=== PATIENT | female | born 1995 | race Caucasian/White ===

== ENCOUNTER 2020-01-17 23:48 | Emergency (ER) | payer MEDICAID, SELFPAY ==
--- NOTE | 2020-01-18 | XR_ITS ---
EXAMINATION: XR CHEST CLINICAL INFORMATION: Cough and fever COMPARISON: 11/29/2016 TECHNIQUE: Frontal view of the chest was obtained. FINDINGS: The lungs are well expanded. There is no focal consolidation, edema, or effusion. No pneumothorax. The cardiomediastinal silhouette is within normal limits. No acute osseous abnormality. XR/XR chest 1V IMPRESSION: Clear lungs.
[2020-01-18 00:12] VITALS: BP 105/66; PULSE 125; RESP 16; TEMP 38.3; O2SAT 96; BMI 33.0
--- NOTE | 2020-01-18 00:15 | ED.URI ---
HPI - URI/Sore Throat General Chief Complaint: Upper Respiratory Symptoms <Gael Rubio NP - Last Filed: 01/18/20 02:04> Stated Complaint: Body aches <Gael Rubio NP - Last Filed: 01/18/20 02:04> Time Seen by Provider: 01/18/20 00:02 <Gael Rubio NP - Last Filed: 01/18/20 02:04> Source: patient <Gael Rubio NP - Last Filed: 01/18/20 02:04> Mode of arrival: ambulatory <Gael Rubio NP - Last Filed: 01/18/20 02:04> Limitations: no limitations <Gael Rubio NP - Last Filed: 01/18/20 02:04> History of Present Illness HPI Narrative: 24-year-old female who currently is 33 weeks gestation with single IUP confirmed via sono being followed by [facility] Stephanie Marcial - otherwise she is healthy not currently taking any medications reports to me that she has had some runny nose congestion today and chills. 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 She otherwise denies any chest pain or shortness of breath no abdominal pain, GI symptoms. No -related complaints. States she is up-to-date on vaccinations. No recent travel, antibiotic use. <Gael Rubio NP - Last Filed: 01/18/20 02:04> MD elicited complaint: rhinorrhea and nasal congestion <Gael Rubio NP - Last Filed: 01/18/20 02:04> Onset (ago): day(s) (1) <Gael Rubio NP - Last Filed: 01/18/20 02:04> Severity: mild <Gael Rubio NP - Last Filed: 01/18/20 02:04> Exacerbating factors: nothing <Gael Rubio NP - Last Filed: 01/18/20 02:04> Relieving factors: nothing <Gael Rubio NP - Last Filed: 01/18/20 02:04> Context: sick contacts <Gael Rubio NP - Last Filed: 01/18/20 02:04> Associated symptoms: rhinorrhea <Gael Rubio NP - Last Filed: 01/18/20 02:04> Treatments prior to arrival: none <Gael Rubio NP - Last Filed: 01/18/20 02:04> Related Data Allergies/Adverse Reactions: Allergies Allergy/AdvReac Type Severity Reaction Status Date / Time No Known Allergies Allergy Verified 01/18/20 00:12 [No Known Allergies*] <Gael Rubio NP - Last Filed: 01/18/20 02:04> Review of Systems Review of Systems: Constitutional: No Weight loss, No Fever, + Chills, No Night Sweats, No Fatigue, No Malaise ENT/Mouth: No Hearing loss, No Ear Pain, + Nasal Congestion, No Sinus Pain, No Hoarseness, No sore throat, + Rhinorrhea, No Swallowing Difficulty Eyes: No Eye Pain, No Swelling, No Redness, No Foreign Body, No Discharge, No Vision Changes Cardiovascular: No Chest Pain, No SOB, No Dyspnea on Exertion, No Orthopnea, No Edema, No Palpitations Respiratory: No Cough, No Sputum, No Wheezing, No Smoke Exposure, No Dyspnea Gastrointestinal: No Nausea, No Vomiting, No Diarrhea, No Constipation, No abdominal Pain, No Hematochezia, No Melena Genitourinary: no irregular bleeding, No Dysuria, No Urinary Frequency, No Hematuria, No Urinary Incontinence, No Urgency, No Flank Pain, No Urinary Flow Changes, No Hesitancy Musculoskeletal: No joint pain, No Myalgias, No Joint Swelling Skin: No Skin Lesions, No rash Neuro: No Weakness, No Numbness, No Paresthesias, No Loss of Consciousness, No Dizziness, No Headache Psych: No Social Issues Heme/Lymph: No Bruising, No Bleeding,No Lymphadenopathy Endocrine: No Polyuria, No Polydipsia, No Temperature Intolerance <Gael Rubio NP - Last Filed: 01/18/20 02:04> Yes all other systems are reviewed and are negative <Gael Rubio NP - Last Filed: 01/18/20 02:04> [facility] Past Medical History Attestation statement: The following information was validated with the patient. <Gael Rubio NP - Last Filed: 01/18/20 02:04> Medical History: Medical History Patient denies significant medical history <Gael Rubio NP - Last Filed: 01/18/20 02:04> Social History Social History: Social History Alcohol intake: never Smoked in Last 30 Days: No Use of substances other than those prescribed or required for medical reasons: No Advance Directives: No <Gael Rubio NP - Last Filed: 01/18/20 02:04> Physical Exam Vital Signs: Vital Signs: Vital Signs Temp Pulse Resp BP Pulse Ox 01/18/20 02:00 99.3 F 99 18 109/67 98 01/18/20 00:36 98 01/18/20 00:12 100.9 F H 125 H 16 105/66 96 Body Mass Index 33.0 Reviewed <Gael Rubio NP - Last Filed: 01/18/20 02:04> Vital Signs: Vital Signs Temp Pulse Resp BP Pulse Ox 01/18/20 02:00 99.3 F 99 18 109/67 98 01/18/20 00:36 98 01/18/20 00:12 100.9 F H 125 H 16 105/66 96 Body Mass Index 33.0 <Alexa Chawla MD - Last Filed: 01/18/20 02:15> Const: General: cooperative and healthy appearing; No acute distress or intoxicated appearing <Gael Rubio NP - Last Filed: 01/18/20 02:04> Nutritional Appearance: average body habitus <Gael Rubio NP - Last Filed: 01/18/20 02:04> Orientation/consciousness: patient oriented x3 <Gael Rubio NP - Last Filed: 01/18/20 02:04> HENMT: Head: Yes normal to inspection <Gael Rubio NP - Last Filed: 01/18/20 02:04> Ears: hearing grossly normal bilaterally <Gael Rubio NP - Last Filed: 01/18/20 02:04> Eyes: General: appearance normal, both eyes and all related structures <Gael Rubio NP - Last Filed: 01/18/20 02:04> Visual Burnett: normal visual burnett by confrontation <Gael Rubio NP - Last Filed: 01/18/20 02:04> Neck: Neck: Yes normal visual inspection, No positive Brudzinski's sign, No positive Kernig's sign and No tender <[facility] Last Filed: 01/18/20 02:04> Thyroid: Thyroid normal <[facility] Last Filed: 01/18/20 02:04> Chest: Chest palpation & inspection: normal inspection of the chest <[facility] Last Filed: 01/18/20 02:04> Resp: Effort & Inspection: normal respiratory effort <[facility] Last Filed: 01/18/20 02:04> Cardio: Jugular venous distension: no JVD <[facility] Last Filed: 01/18/20 02:04> GI: Inspection: Yes normal to inspection <[facility] Last Filed: 01/18/20 02:04> Percussion: Yes normal to percussion <[facility] Last Filed: 01/18/20 02:04> Auscultation: normal bowel sounds <[facility] Last Filed: 01/18/20 02:04> : General: Yes no CVA tenderness <[facility] Last Filed: 01/18/20 02:04> Back/Spine/Pelvis: Back: no CVA tenderness <[facility] Last Filed: 01/18/20 02:04> Skin: General skin exam: no rashes or lesions noted <[facility] Last Filed: 01/18/20 02:04> Neuro: General: patient oriented x3 <[facility] Last Filed: 01/18/20 02:04> Extrem: General: Yes normal to inspection <[facility] Last Filed: 01/18/20 02:04> MDM - URI/Sore Throat MDM Narrative Medical decision making narrative: Labs overall reassuring. Has been resting comfortable. Did receive IV fluids here. Chest x-ray negative. Influenza/ COVID test negative. Will discharge home with clear precaution return follow-up instructions. Stable for discharge [facility] Last Filed: 01/18/20 02:04> Differential Diagnosis Differential diagnosis: Likely upper respiratory infection, sinusitis, viral infection and influenza; Unlikely croup, otitis media, bronchitis and pharyngitis <Gael Rubio NP - Last Filed: 01/18/20 02:04> Medical Records Attestation: I reviewed the patient's medical records. <Gael Rubio NP - Last Filed: 01/18/20 02:04> Lab Data Result diagrams: : 01/18/20 00:37 01/18/20 00:37 <Gaelkiran Rubio NP - Last Filed: 01/18/20 02:04> Labs: Lab Results 01/18/20 01/18/20 01/18/20 Range/Units 00:37 00:37 00:37 WBC (4.8-10.8) X10*3/uL RBC (4.20-5.50) X10*6/uL Hgb (12.0-16.0) g/dl Hct (37-47) % MCV (80-98) fL MCH (27.0-33.0) pg MCHC (31.0-35.0) g/dl RDW (11.0-16.0) % Plt Count (160-400) X10*3/uL MPV (9.4-12.3) fL Immature Gran % (Auto) (0.0-0.4) % Neut % (Auto) (45-73) % Lymph % (Auto) (20-40) % [place] % (Auto) (2-11) % Eos % (Auto) (0-4) % Baso % (Auto) (0-2) % Lymph # (Auto) (1.2-4.9) X10*3/uL [place] # (Auto) (0.1-1.2) X10*3/uL Eos # (Auto) (0.0-0.4) X10*3/uL Baso # (Auto) (0.0-0.2) X10*3/uL Abs Immat Gran (auto) (0.00-0.03) X10*3/uL Absolute Neuts (auto) (2.0-8.3) X10*3/uL Absolute Nucleated RBC (0.0-0.012) X10*3/uL Nucleated RBC % (auto) (0.0-0.2) /100WBC Sodium (135-145) mmol/L Potassium (3.3-5.1) mmol/l Chloride (96-108) mmol/L Carbon Dioxide (22-29) mmol/L Anion Gap (12-20) BUN (9-16) mg/dL Creatinine (0.5-1.4) mg/dL Estim Creat Clear Calc Estimated GFR Random Glucose (60-115) mg/dL Calcium (8.4-10.2) mg/dL Total Bilirubin (0.0-1.0) mg/dL AST (5-31) U/L ALT (0-31) U/L Alkaline Phosphatase (39-117) U/L Total Protein (6.5-8.0) g/dL Albumin (3.5-5.0) g/dL Urine Color YELLOW Urine Appearance HAZY Urine pH 6.5 (5.0-8.0) Ur Specific [place] 1.025 (1.005-1.025) Urine Protein NEG (NEG-TRACE) MG/DL Urine Glucose (UA) NEG (NEG) MG/DL Urine Ketones 5 (NEG) MG/DL Urine Blood NEG (NEG) Urine Nitrite NEG (NEG) Ur Leukocyte Esterase 2+ H (NEG) Urine RBC 0 (0) /HPF Urine WBC 1-4 (0-4) /HPF Ur Squamous Epith Cells 4+ /LPF Urine Bacteria 3+ /LPF Urine Mucus 1+ /LPF Coronavirus (PCR) NEGATIVE (Negative) Influenza Type A (PCR) NEGATIVE (Negative) Influenza Type B (PCR) NEGATIVE (Negative) Influenza A & B Note See Note RSV RNA Qual (PCR) NEGATIVE (Negative) 01/18/20 01/18/20 Range/Units 00:37 00:37 WBC 11.7 H (4.8-10.8) X10*3/uL RBC 4.00 L (4.20-5.50) X10*6/uL Hgb 11.1 L (12.0-16.0) g/dl Hct 33.9 L (37-47) % MCV 84.8 (80-98) fL MCH 27.8 (27.0-33.0) pg MCHC 32.7 (31.0-35.0) g/dl RDW 12.4 (11.0-16.0) % Plt Count 268 (160-400) X10*3/uL MPV 11.0 (9.4-12.3) fL Immature Gran % (Auto) 0.7 H (0.0-0.4) % Neut % (Auto) 84.2 H (45-73) % Lymph % (Auto) 8.3 L (20-40) % [place] % (Auto) 6.2 (2-11) % Eos % (Auto) 0.3 (0-4) % Baso % (Auto) 0.3 (0-2) % Lymph # (Auto) 1.0 L (1.2-4.9) X10*3/uL [place] # (Auto) 0.7 (0.1-1.2) X10*3/uL Eos # (Auto) 0.0 (0.0-0.4) X10*3/uL Baso # (Auto) 0.0 (0.0-0.2) X10*3/uL Abs Immat Gran (auto) 0.08 H (0.00-0.03) X10*3/uL Absolute Neuts (auto) 9.9 H (2.0-8.3) X10*3/uL Absolute Nucleated RBC 0.000 (0.0-0.012) X10*3/uL Nucleated RBC % (auto) 0.0 (0.0-0.2) /100WBC Sodium 134 L (135-145) mmol/L Potassium 3.9 (3.3-5.1) mmol/l Chloride 106 (96-108) mmol/L Carbon Dioxide 19 L (22-29) mmol/L Anion Gap 13 (12-20) BUN 5 L (9-16) mg/dL Creatinine 0.49 L (0.5-1.4) mg/dL Estim Creat Clear Calc 171.8 Estimated GFR > 60 Random Glucose 86 (60-115) mg/dL Calcium 7.8 L (8.4-10.2) mg/dL Total Bilirubin 0.7 (0.0-1.0) mg/dL AST 21 (5-31) U/L ALT 17 (0-31) U/L Alkaline Phosphatase 137 H (39-117) U/L Total Protein 6.5 (6.5-8.0) g/dL Albumin 3.2 L (3.5-5.0) g/dL Urine Color Urine Appearance Urine pH (5.0-8.0) Ur Specific [place] (1.005-1.025) Urine Protein (NEG-TRACE) MG/DL Urine Glucose (UA) (NEG) MG/DL Urine Ketones (NEG) MG/DL Urine Blood (NEG) Urine Nitrite (NEG) Ur Leukocyte Esterase (NEG) Urine RBC (0) /HPF Urine WBC (0-4) /HPF Ur Squamous Epith Cells /LPF Urine Bacteria /LPF Urine Mucus /LPF Coronavirus (PCR) (Negative) Influenza Type A (PCR) (Negative) Influenza Type B (PCR) (Negative) Influenza A & B Note RSV RNA Qual (PCR) (Negative) <Gael Rubio NP - Last Filed: 01/18/20 02:04> Lab Results 01/18/20 01/18/20 01/18/20 Range/Units 00:37 00:37 00:37 WBC (4.8-10.8) X10*3/uL RBC (4.20-5.50) X10*6/uL Hgb (12.0-16.0) g/dl Hct (37-47) % MCV (80-98) fL MCH (27.0-33.0) pg MCHC (31.0-35.0) g/dl RDW (11.0-16.0) % Plt Count (160-400) X10*3/uL MPV (9.4-12.3) fL Immature Gran % (Auto) (0.0-0.4) % Neut % (Auto) (45-73) % Lymph % (Auto) (20-40) % [place] % (Auto) (2-11) % Eos % (Auto) (0-4) % Baso % (Auto) (0-2) % Lymph # (Auto) (1.2-4.9) X10*3/uL [place] # (Auto) (0.1-1.2) X10*3/uL Eos # (Auto) (0.0-0.4) X10*3/uL Baso # (Auto) (0.0-0.2) X10*3/uL Abs Immat Gran (auto) (0.00-0.03) X10*3/uL Absolute Neuts (auto) (2.0-8.3) X10*3/uL Absolute Nucleated RBC (0.0-0.012) X10*3/uL Nucleated RBC % (auto) (0.0-0.2) /100WBC Sodium (135-145) mmol/L Potassium (3.3-5.1) mmol/l Chloride (96-108) mmol/L Carbon Dioxide (22-29) mmol/L Anion Gap (12-20) BUN (9-16) mg/dL Creatinine (0.5-1.4) mg/dL Estim Creat Clear Calc Estimated GFR Random Glucose (60-115) mg/dL Calcium (8.4-10.2) mg/dL Total Bilirubin (0.0-1.0) mg/dL AST (5-31) U/L ALT (0-31) U/L Alkaline Phosphatase (39-117) U/L Total Protein (6.5-8.0) g/dL Albumin (3.5-5.0) g/dL Urine Color YELLOW Urine Appearance HAZY Urine pH 6.5 (5.0-8.0) Ur Specific [place] 1.025 (1.005-1.025) Urine Protein NEG (NEG-TRACE) MG/DL Urine Glucose (UA) NEG (NEG) MG/DL Urine Ketones 5 (NEG) MG/DL Urine Blood NEG (NEG) Urine Nitrite NEG (NEG) Ur Leukocyte Esterase 2+ H (NEG) Urine RBC 0 (0) /HPF Urine WBC 1-4 (0-4) /HPF Ur Squamous Epith Cells 4+ /LPF Urine Bacteria 3+ /LPF Urine Mucus 1+ /LPF Coronavirus (PCR) NEGATIVE (Negative) Influenza Type A (PCR) NEGATIVE (Negative) Influenza Type B (PCR) NEGATIVE (Negative) Influenza A & B Note See Note RSV RNA Qual (PCR) NEGATIVE (Negative) 01/18/20 01/18/20 Range/Units 00:37 00:37 WBC 11.7 H (4.8-10.8) X10*3/uL RBC 4.00 L (4.20-5.50) X10*6/uL Hgb 11.1 L (12.0-16.0) g/dl Hct 33.9 L (37-47) % MCV 84.8 (80-98) fL MCH 27.8 (27.0-33.0) pg MCHC 32.7 (31.0-35.0) g/dl RDW 12.4 (11.0-16.0) % Plt Count 268 (160-400) X10*3/uL MPV 11.0 (9.4-12.3) fL Immature Gran % (Auto) 0.7 H (0.0-0.4) % Neut % (Auto) 84.2 H (45-73) % Lymph % (Auto) 8.3 L (20-40) % [place] % (Auto) 6.2 (2-11) % Eos % (Auto) 0.3 (0-4) % Baso % (Auto) 0.3 (0-2) % Lymph # (Auto) 1.0 L (1.2-4.9) X10*3/uL [place] # (Auto) 0.7 (0.1-1.2) X10*3/uL Eos # (Auto) 0.0 (0.0-0.4) X10*3/uL Baso # (Auto) 0.0 (0.0-0.2) X10*3/uL Abs Immat Gran (auto) 0.08 H (0.00-0.03) X10*3/uL Absolute Neuts (auto) 9.9 H (2.0-8.3) X10*3/uL Absolute Nucleated RBC 0.000 (0.0-0.012) X10*3/uL Nucleated RBC % (auto) 0.0 (0.0-0.2) /100WBC Sodium 134 L (135-145) mmol/L Potassium 3.9 (3.3-5.1) mmol/l Chloride 106 (96-108) mmol/L Carbon Dioxide 19 L (22-29) mmol/L Anion Gap 13 (12-20) BUN 5 L (9-16) mg/dL Creatinine 0.49 L (0.5-1.4) mg/dL Estim Creat Clear Calc 171.8 Estimated GFR > 60 Random Glucose 86 (60-115) mg/dL Calcium 7.8 L (8.4-10.2) mg/dL Total Bilirubin 0.7 (0.0-1.0) mg/dL AST 21 (5-31) U/L ALT 17 (0-31) U/L Alkaline Phosphatase 137 H (39-117) U/L Total Protein 6.5 (6.5-8.0) g/dL Albumin 3.2 L (3.5-5.0) g/dL Urine Color Urine Appearance Urine pH (5.0-8.0) Ur Specific [place] (1.005-1.025) Urine Protein (NEG-TRACE) MG/DL Urine Glucose (UA) (NEG) MG/DL Urine Ketones (NEG) MG/DL Urine Blood (NEG) Urine Nitrite (NEG) Ur Leukocyte Esterase (NEG) Urine RBC (0) /HPF Urine WBC (0-4) /HPF Ur Squamous Epith Cells /LPF Urine Bacteria /LPF Urine Mucus /LPF Coronavirus (PCR) (Negative) Influenza Type A (PCR) (Negative) Influenza Type B (PCR) (Negative) Influenza A & B Note RSV RNA Qual (PCR) (Negative) <Alexa Chawla MD - Last Filed: 01/18/20 02:15> Discharge Plan Discharge Clinical Impression: Viral infection Upper respiratory infection Qualifiers: URI type: unspecified viral URI Qualified Code(s): J06.9 - Acute upper respiratory infection, unspecified <Gael Rubio NP - Last Filed: 01/18/20 02:04> Patient Disposition: Home, Self-Care <Gael Rubio NP - Last Filed: 01/18/20 02:04> Instructions: Upper Respiratory Infection (ED) <Gael Rubio NP - Last Filed: 01/18/20 02:04> Additional Instructions: rest Drink plenty of fluids Tylenol for pain / fever Self-isolation Social distancing Follow with her OBGYN team as discussed Return if any concerns or worsening symptoms Thank you <Gael Rubio NP - Last Filed: 01/18/20 02:04> Referrals: ED Physician,Generic [Physician] - 3 days ( [facility] as needed) <Gael Rubio NP - Last Filed: 01/18/20 02:04> Interventions: ED Discharge Assessment Last Done: 01/18/20 02:10 <Gael Rubio NP - Last Filed: 01/18/20 02:04> Discharge Date/Time: 01/18/20 02:10 <Gael Rubio NP - Last Filed: 01/18/20 02:04> Print Language: Italian <Gael Rubio NP - Last Filed: 01/18/20 02:04>
[2020-01-18 00:36] VITALS: O2SAT 98
[2020-01-18] MEDS: Acetaminophen 325 MG TABLET 975 MG PO (00:45)
[2020-01-18] MEDS: 0.9 % Sodium Chloride 1,000 ML 999 ML IVCONT (00:45)
[2020-01-18 00:48] LABS: Basophils Percent Auto 0.3 % (0-2); Eosinophils Percent Auto 0.3 % (0-4); Hematocrit 33.9 % (37-47); Hemoglobin 11.1 g/dl (12.0-16.0); Imm Gran Abs Auto 0.08 X10*3/uL (0.00-0.03); Imm Gran Pct Auto 0.7 % (0.0-0.4); Lymphocytes Percent Auto 8.3 % (20-40); Mean Corpuscular HGB Conc 32.7 g/dl (31.0-35.0); Mean Corpuscular Hemoglobin 27.8 pg (27.0-33.0); Mean Corpuscular Volume 84.8 fL (80-98); Monocytes Absolute Auto 0.7 X10*3/uL (0.1-1.2); Monocytes Percent Auto 6.2 % (2-11); Neutrophils Absolute Auto 9.9 X10*3/uL (2.0-8.3); Neutrophils Percent Auto 84.2 % (45-73); Platelet Count 268 X10*3/uL (160-400); Red Cell Distribution Width 12.4 % (11.0-16.0); White Blood Count 11.7 X10*3/uL (4.8-10.8)
[2020-01-18 00:49] LABS: MANUAL DIFF FLAG NO
[2020-01-18 00:51] LABS: Glucose Urine UA NEG (NEG); Leukocyte Esterase Urine 2+ (NEG); Nitrite Urine NEG (NEG); PH 6.5 (5.0-8.0); Specific Gravity - Urine 1.025 (1.005-1.025); Urine Blood NEG (NEG); Urine Ketones 5 MG/DL (NEG); Urine Protein NEG (NEG-TRACE)
[2020-01-18 00:52] LABS: Appearance Urine HAZY; Color Urine YELLOW
[2020-01-18 01:03] LABS: Bacteria Urine 3+ /LPF; Mucus Urine 1+ /LPF; RBC Urine 0 /HPF (0); Squamous Epithelial Cell Urine 4+ /LPF
[2020-01-18 01:11] LABS: Alanine Aminotransferase 17 U/L (0-31); Albumin Level 3.2 g/dL (3.5-5.0); Alkaline Phosphatase 137 U/L (39-117); Anion Gap 13 (12-20); Aspartate Amino Transferase 21 U/L (5-31); Bilirubin Total 0.7 mg/dL (0.0-1.0); Blood Urea Nitrogen 5 mg/dL (9-16); Calcium 7.8 mg/dL (8.4-10.2); Carbon Dioxide 19 mmol/L (22-29); Chloride 106 mmol/L (96-108); Creatinine Clr Calc Pharmacy 171.8; Estimated Glomerular Filt Rate > 60; Glucose Random 86 mg/dL (60-115); Potassium 3.9 mmol/l (3.3-5.1); Sodium 134 mmol/L (135-145); Total Protein 6.5 g/dL (6.5-8.0)
[2020-01-18 01:41] LABS: Influenza A PCR NEGATIVE (Negative); Influenza B PCR NEGATIVE (Negative)
[2020-01-18 01:47] LABS: Resp Syncy Virus RNA Qual PCR NEGATIVE (Negative)
[2020-01-18 02:00] VITALS: BP 109/67; PULSE 99; RESP 18; TEMP 37.4; O2SAT 98
[2020-01-18 02:00] LABS: SARS COV2 PCR INHOUSE NEGATIVE (Negative)
--- NOTE | 2020-01-18 02:09 | PC.NURSE ---
heart tones 186, provider aware.
== END 2020-01-18 02:10 | disposition home or self-care (01) ==
PROVIDERS: Nurse Practitioner Primary Care; Emergency Provider Student in an Organized Health Care Education/Training Program
DX: J06.9 Acute upper respiratory infection, unspecified (principal); B34.9 Viral infection, unspecified; M79.10 Myalgia, unspecified site; Z20.828 Contact with and (suspected) exposure to other viral communicable diseases
CPT/HCPCS: 36415; 71045; 80053; 81001; 85025; 87086; 87631; 96360; 99284; U0003

== ENCOUNTER 2021-03-31 19:37 | Emergency (ER) | payer MEDICAID, SELFPAY | END 2021-03-31 21:23 | disposition left against medical advice (07) | LOC: HO.ED 21:21 | PROVIDERS: Emergency Provider Emergency Medicine | DX: R51.9 Headache, unspecified (principal) ==

== ENCOUNTER 2022-06-02 10:57 | Outpatient (REF) | payer MEDICAID, SELFPAY ==
--- NOTE | ~2022-06-02 | US_ITS ---
EXAMINATION: US PELVIC AND TRANSVAGINAL CLINICAL INFORMATION: Excessive and frequent menstruation. COMPARISON: CT abdomen and pelvis 07/26/2011. TECHNIQUE: Ultrasound of the pelvis is performed using both transabdominal and transvaginal transducers along with Doppler. Transvaginal imaging is performed due to inadequate visualization transabdominally. FINDINGS: UTERUS: The uterus is anteverted and measures 8.6 x 3.9 x 3.9 cm. The double wall endometrial thickness is 0.5 mm. Trace fluid is seen at the fundus. The uterus is smooth in contour and has normal myometrial echogenicity. No visible fibroid. ADNEXA: Both ovaries are visualized. There is normal color flow to the adnexa. There is no ovarian torsion. There is no pelvic ascites or fluid collection. Right ovary measures 3.7 x 1.9 x 2.3 cm for a volume of 8.5 mL which includes a benign simple 2.7 x 0.9 x 1.5 cm cyst. Left ovary measures 5.7 x 4.2 x 5.6 cm for a volume of 70.2 mL which includes a benign 5.0 x 3.6 x 4.3 cm cyst. US/US pelvic and transvaginal IMPRESSION: Bilateral benign-appearing ovarian cysts. No followup is needed.
== END 2022-06-02 10:58 | disposition home or self-care (01) ==
LOC: HO.US 10:57
PROVIDERS: Visit Provider General Practice
DX: N92.0 Excessive and frequent menstruation with regular cycle (principal); N76.0 Acute vaginitis
CPT/HCPCS: 76830; 76856

== ENCOUNTER 2023-01-04 21:55 | Emergency (ER) | payer MEDICAID, SELFPAY ==
--- NOTE | ~2023-01-04 | US_ITS ---
EXAMINATION: US PELVIS CLINICAL INFORMATION: Lower abdominal pain, question ovarian cyst COMPARISON: 06/02/2022 TECHNIQUE: Ultrasound of the pelvis is performed using both transabdominal and transvaginal transducers along with Doppler. Transvaginal imaging is performed due to inadequate visualization transabdominally. FINDINGS: Uterus measures 8.5 x 3.9 x 4.2 cm and appears unremarkable. Endometrial stripe measures 0.2 cm in thickness. Right ovary measures 3.2 x 1.9 x 1.7 cm and appears unremarkable. The left ovary measures 5.7 x 3.9 x 4.1 cm. There is a complex left ovarian cyst measuring 4.8 x 2.8 x 3.0 cm with some lacelike internal echoes as well as thicker septations, overall suggestive of a hemorrhagic cyst. Doppler evaluation demonstrates normal-appearing bilateral flow. Small to moderate amount of free fluid is noted in the pelvis. US/US pelvic and transvaginal IMPRESSION: 1. Complex left ovarian cyst measuring up to 4.8 cm, suggestive of a hemorrhagic cyst. Follow-up ultrasound in 6-12 weeks is recommended to assess for resolution. 2. Small to moderate amount of free fluid in the pelvis, nonspecific and which may be physiologic.
[2023-01-04 22:06] VITALS: BP 97/57; PULSE 80; RESP 18; TEMP 36.8; O2SAT 99; BMI 33.2
[2023-01-04 22:23] LABS: MANUAL DIFF FLAG NO
[2023-01-04 22:24] LABS: Basophils Absolute Auto 0.1 X10*3/uL (0.0-0.2); Basophils Percent Auto 0.6 % (0-2); Eosinophils Absolute Auto 0.2 X10*3/uL (0.0-0.4); Eosinophils Percent Auto 1.4 % (0-4); Hematocrit 39.2 % (37.0-47.0); Imm Gran Abs Auto 0.05 X10*3/uL (0.00-0.03); Imm Gran Pct Auto 0.3 % (0.0-0.4); Lymphocytes Absolute Auto 3.9 X10*3/uL (1.2-4.9); Lymphocytes Percent Auto 25.3 % (20-40); Mean Corpuscular HGB Conc 33.2 g/dl (31.0-35.0); Mean Corpuscular Hemoglobin 27.8 pg (27.0-33.0); Mean Corpuscular Volume 83.8 fL (80.0-98.0); Mean Platelet Volume 9.8 fL (9.4-12.3); Monocytes Absolute Auto 0.8 X10*3/uL (0.1-1.2); Neutrophils Absolute Auto 10.5 x10*3/uL (2.0-8.3); Neutrophils Percent Auto 67.4 % (45-73); Platelet Count 320 X10*3/uL (160-400); Red Blood Count 4.68 X10*6/uL (4.20-5.50); Red Cell Distribution Width 12.6 % (11.0-16.0); White Blood Count 15.6 X10*3/uL (4.8-10.8)
[2023-01-04 22:25] LABS: Appearance Urine Clear; Color Urine Yellow; Glucose Urine UA Negative (Negative); Leukocyte Esterase Urine Negative (Negative); Nitrite Urine Negative (Negative); Specific Gravity - Urine >= 1.030 (1.005-1.025); Urine Blood Negative (Negative); Urine Ketones Negative (Negative); Urine Protein Negative (Neg-Trace)
[2023-01-04 22:27] LABS: UPreg QC Valid YES; Urine Pregnancy NEGATIVE (NEGATIVE)
[2023-01-04 22:39] LABS: Alanine Aminotransferase 26 U/L (0-31); Alkaline Phosphatase 72 U/L (39-117); Anion Gap 12 (12-20); Aspartate Amino Transferase 22 U/L (5-31); Bilirubin Direct 0.3 mg/dL (0.0-0.5); Bilirubin Total 0.7 mg/dL (0.0-1.0); Blood Urea Nitrogen 11 mg/dL (9-16); Calcium 9.4 mg/dL (8.4-10.2); Carbon Dioxide 24 mmol/L (22-29); Chloride 105 mmol/L (96-108); Creatinine Clr Calc Pharmacy 141.7; Estimated Glomerular Filt Rate > 60; Glucose Random 83 mg/dL (60-115); Lipase 22 U/L (8-78); Potassium 3.7 mmol/L (3.3-5.1); Sodium 137 mmol/L (135-145); Total Protein 7.8 g/dL (6.5-8.0)
--- NOTE | 2023-01-04 22:41 | ED.ABDPAIN ---
HPI - Abdominal Pain General Chief Complaint: Abdominal Pain Stated Complaint: Abdominal/back sharp pain Time Seen by Provider: 01/04/23 22:23 Source: patient Mode of arrival: ambulatory Limitations: no limitations History of Present Illness HPI narrative: Patient complaining of pain the pelvic area since noon, does have history of ovarian cyst in the past and tubal also status post appendectomy , cholecystectomy pain sharp in character radiating to the epigastric area no urinary complaints has nausea but no vomiting Related Data Previous Rx's Medication Instructions Recorded ibuprofen 600 mg tablet 600 mg PO Q6H PRN fever or pain 01/05/23 #30 tabs Allergies Allergy/AdvReac Type Severity Reaction Status Date / Time No Known Allergies Allergy Verified 01/18/20 00:12 [No Known Allergies*] Review of Systems Review of Systems Yes all other systems are reviewed and are negative [facility] Past Medical History Medical History Patient denies significant medical history Social History Social History Alcohol intake: never Advance Directives: No Advance Directives Information Provided: Yes Physical Exam ED Vital Signs: Vital Signs - 24 hr 01/04/23 22:06 Temperature 98.3 F Pulse Rate 80 Respiratory Rate 18 Blood Pressure 97/57 L Pulse Oximetry 99 Oxygen Delivery Method Room Air BMI result Body Mass Index 33.2 Appearance: Alert. Oriented X3. No acute distress. Eyes: No pallor/icterus ENT: Pharynx normal. Oral Mucosa moist Neck: Normal inspection. Neck supple. CVS: Normal heart rate and rhythm. Pulses normal. Respiratory: No respiratory distress. Equal air entry bilateral, no wheezing/rales/rhonchi Abdomen: Soft tenderness in epigastric area and suprapubic no guarding or rebound tenderness Bowel sounds are present, no mass palpable, no CVA tenderness Skin: Skin warm and dry. Normal skin color. Normal skin turgor. Extremities: No lower extremity edema. No calf tenderness Neuro: Oriented X 3. Medical Decision Making Medical Decision Making MDM Narrative: Patient likely with hemorrhagic ovarian cyst with history of same in the past ultrasound done which showed 4.8 cm left complex ovarian cyst with hemorrhage inside patient feeling better after pain medication discharge patient home on ibuprofen Differential Diagnosis Differential Diagnoses: The differential diagnosis associated with the presentation includes Ovarian cyst/UTI Lab Data MDM Lab Attestation statement: I reviewed the patient's lab results. 01/04/23 22:17 01/04/23 22:16 Labs: Lab Results 01/04/23 01/04/23 Range/Units 22:16 22:17 WBC 15.6 H (4.8-10.8) X10*3/uL RBC 4.68 (4.20-5.50) X10*6/uL Hgb 13.0 (12.0-16.0) g/dl Hct 39.2 (37.0-47.0) % MCV 83.8 (80.0-98.0) fL MCH 27.8 (27.0-33.0) pg MCHC 33.2 (31.0-35.0) g/dl RDW 12.6 (11.0-16.0) % Plt Count 320 (160-400) X10*3/uL MPV 9.8 (9.4-12.3) fL Immature Gran % (Auto) 0.3 (0.0-0.4) % Neut % (Auto) 67.4 (45-73) % Lymph % (Auto) 25.3 (20-40) % [place] % (Auto) 5.0 (2-11) % Eos % (Auto) 1.4 (0-4) % Baso % (Auto) 0.6 (0-2) % Lymph # (Auto) 3.9 (1.2-4.9) X10*3/uL [place] # (Auto) 0.8 (0.1-1.2) X10*3/uL Eos # (Auto) 0.2 (0.0-0.4) X10*3/uL Baso # (Auto) 0.1 (0.0-0.2) X10*3/uL Abs Immat Gran (auto) 0.05 H (0.00-0.03) X10*3/uL Absolute Neuts (auto) 10.5 H (2.0-8.3) x10*3/uL Absolute Nucleated RBC 0.000 (0.0-0.012) X10*3/uL Nucleated RBC % (auto) 0.0 (0.0-0.2) /100WBC Sodium 137 (135-145) mmol/L Potassium 3.7 (3.3-5.1) mmol/L Chloride 105 (96-108) mmol/L Carbon Dioxide 24 (22-29) mmol/L Anion Gap 12 (12-20) BUN 11 (9-16) mg/dL Creatinine 0.58 (0.5-1.4) mg/dL Estim Creat Clear Calc 141.7 Estimated GFR > 60 Random Glucose 83 (60-115) mg/dL Calcium 9.4 D (8.4-10.2) mg/dL Total Bilirubin 0.7 (0.0-1.0) mg/dL Direct Bilirubin 0.3 (0.0-0.5) mg/dL AST 22 (5-31) U/L ALT 26 (0-31) U/L Alkaline Phosphatase 72 (39-117) U/L Total Protein 7.8 (6.5-8.0) g/dL Albumin 4.0 (3.5-5.0) g/dL Lipase 22 (8-78) U/L Urine Color Yellow Urine Appearance Clear Urine pH 6.0 (5.0-9.0) Ur Specific [place] >= 1.030 H (1.005-1.025) Urine Protein Negative (Neg-Trace) mg/dL Urine Glucose (UA) Negative (Negative) mg/dL Urine Ketones Negative (Negative) mg/dL Urine Blood Negative (Negative) Urine Nitrite Negative (Negative) Ur Leukocyte Esterase Negative (Negative) Urine Test NEGATIVE (NEGATIVE) Radiology Impression Discussion of test interpretation with radiology: I have reviewed the radiologist's reading. Radiologist Impression: US/US pelvic and transvaginal IMPRESSION: 1. Complex left ovarian cyst measuring up to 4.8 cm, suggestive of a hemorrhagic cyst. Follow-up ultrasound in 6-12 weeks is recommended to assess for resolution. 2. Small to moderate amount of free fluid in the pelvis, nonspecific and which may be physiologic. Medications Administered Discontinued Medications Generic Name Dose Route Start Last Admin Trade Name Freq PRN Reason Stop Dose Admin Sodium Chloride 1,000 mls @ 999 mls/hr 01/04/23 22:39 01/04/23 23:22 Ns IV 01/04/23 23:39 999 mls/hr .[id number] ONE Administration Ketorolac Tromethamine 30 mg 01/04/23 22:39 01/04/23 23:22 Ketorolac Tromethamine 30 Mg/Ml Vial IVPUSH 01/04/23 22:40 30 mg ONCE ONE Administration Ondansetron HCl 4 mg 01/04/23 22:40 01/04/23 23:22 Ondansetron Hcl 4 Mg/2 Ml Vial IVPUSH 01/04/23 22:41 4 mg ONCE ONE Administration Discharge Plan Discharge Clinical Impression: Hemorrhagic cyst of left ovary Patient Disposition: Home, Self-Care Instructions: Ovarian Cyst (ED) Additional Instructions: You have a large cyst on the left side which should disappear in next 2 months 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
--- NOTE | 2023-01-04 22:49 | PC.NURSE ---
pt to ultrasound
[2023-01-04] MEDS: 0.9 % Sodium Chloride 1,000 ML 999 ML IV (23:22)
[2023-01-04] MEDS: Ketorolac Tromethamine 30 MG/ML VIAL IVPUSH (23:22)
[2023-01-04] MEDS: ondansetron HCL 4 MG/2 ML VIAL IVPUSH (23:22)
--- NOTE | 2023-01-05 00:20 | PC.NURSE ---
pt assessed at d/c, reported 5/10 tolerable pain
== END 2023-01-05 00:21 | disposition home or self-care (01) ==
PROVIDERS: Emergency Provider Internal Medicine
DX: N83.202 Unspecified ovarian cyst, left side (principal); N83.8 Other noninflammatory disorders of ovary, fallopian tube and broad ligament; R10.2 Pelvic and perineal pain; R11.0 Nausea; M54.50 Low back pain, unspecified; Z79.899 Other long term (current) drug therapy
CPT/HCPCS: 36415; 76830; 76856; 80053; 81003; 81025; 82248; 83690; 85025; 96374; 96375; 99284; J1885; J2405

== ENCOUNTER 2023-03-10 12:58 | Outpatient (REF) | payer MEDICAID, SELFPAY ==
--- NOTE | ~2023-03-10 | XR_ITS ---
EXAMINATION: XR CHEST CLINICAL INFORMATION: Cough. COMPARISON: 01/18/2020. TECHNIQUE: 2 views of the chest were obtained. FINDINGS: No significant abnormality is noted involving the heart, lungs, mediastinum, bony thorax or soft tissues. XR/XR chest 2V IMPRESSION: Unremarkable examination.
== END 2023-03-10 12:59 | disposition home or self-care (01) ==
LOC: HO.HHCX 12:58
PROVIDERS: Visit Provider Internal Medicine
DX: J40 Bronchitis, not specified as acute or chronic (principal)
CPT/HCPCS: 71046

== ENCOUNTER 2023-03-12 11:12 | Emergency (ER) | payer MEDICAID, SELFPAY ==
[2023-03-12 11:16] VITALS: BP 110/68; PULSE 112; RESP 18; TEMP 36.9; O2SAT 97; BMI 33.4
--- NOTE | 2023-03-12 11:16 | ED_ITS ---
HPI - Abdominal Pain General Chief Complaint: General Medical Stated Complaint: Fever, abd & back pain Time Seen by Provider: 03/12/23 12:19 Source: patient Mode of arrival: ambulatory Limitations: no limitations History of Present Illness HPI narrative: 27 year old female with pmhx significant for presents to the ED today for evaluation of nausea, diarrhea, and epigastric abdominal pain x10 hours. Patient was diagnosed with bronchitis one week ago at urgent care. She was sent home with a zpak, tessalon perles, and prednisone with minimal relief of symptoms. She was then placed on Augmentin 2 days ago and is now taking all four medications. Reports acute onset diarrhea at 0300 this morning. Admits to >10 episodes of wattery diarrhea since then. Endorses associated nausea without vomiting. Continues to endorse cough with rib pain on coughing. Denies chest pain or shortness of breath. Denies fever, chills, sore throat, hematochezia, melena, hematemesis. Denies recent travel. Related Data Previous Rx's Medication Instructions Recorded ibuprofen 600 mg tablet 600 mg PO Q6H PRN fever or pain 01/05/23 #30 tabs ondansetron HCl 4 mg tablet 4 mg PO DAILY PRN nausea and 03/12/23 vomiting 4 days #10 tabs Allergies Allergy/AdvReac Type Severity Reaction Status Date / Time No Known Allergies Allergy Verified 01/18/20 00:12 [No Known Allergies*] Review of Systems Review of Systems Constitutional: No fever, chills, fatigue, night sweats, weight changes ENT/Mouth: No ear pain, hearing loss, nasal congestion, sinus pain, rhinorrhea, sore throat Eyes: No eye pain, swelling, redness, vision changes, discharge Cardio: No chest pain, palpitations, BA[place]ISTA, orthopnea, peripheral edema Pulm: No SOB, cough, sputum, wheezing, dyspnea, hemoptysis GI: +nausea, No vomiting, No hematemesis, +abdominal pain, No diarrhea, constipation, hematochezia, melena : No irregular bleeding, dysuria, frequency, urgency, hesitancy, hematuria, flank pain, urinary flow changes, urinary incontinence or retention MSK: No back pain, neck pain, joint pain, myalgias Skin: No lesions, rashes Neuro: No weakness, numbness, paresthesias, LOC, dizziness, headache All other systems reviewed and are negative. [facility] Past Medical History Attestation statement: The following information was validated with the patient. Source: old records reviewed and nursing notes reviewed Medical History Patient denies significant medical history Social History Social History Alcohol intake: never Advance Directives: No Advance Directives Information Provided: Yes Physical Exam ED Vital Signs: Vital Signs - 24 hr 03/12/23 11:16 Temperature 98.4 F Pulse Rate 112 H Respiratory Rate 18 Blood Pressure 110/68 Pulse Oximetry 97 Oxygen Delivery Method Room Air BMI result Body Mass Index 33.4 Vital signs notable for tachycardia Const General: cooperative, healthy appearing, comfortable, no acute distress, alert and awake Orientation/consciousness: patient oriented x3 Limitations: no limitations HENMT Head: Yes normal to inspection Eyes General: appearance normal, both eyes and all related structures Conjunctivae: conjunctivae normal Sclerae: sclerae normal Pupils: Equal, round and reactive pupils present Neck Neck: Yes normal visual inspection, Yes full ROM and Yes no lymphadenopathy Chest Chest palpation & inspection: normal inspection of the chest, normal palpation of entire chest wall, no crepitus and no tenderness Resp Effort & Inspection: normal respiratory effort and able to speak in complete sentences Auscultation: clear to auscultation bilaterally and no wheezes Cardio Rate: regular rate Rhythm: regular rhythm Peripheral pulses: radial pulses present GI Other: + abd soft, non distended, mildly tender to palpation of the epigastric region, no rebound tenderness or guarding, normoactive bsx4. Inspection: Yes normal to inspection Rectal Exam - Female: deferred General: Yes no CVA tenderness Back/Spine/Pelvis Back: no CVA tenderness Skin General skin exam: no rashes or lesions noted Neuro General: patient oriented x3, gait normal and moves all extremities Cranial nerves: Yes Equal, round and reactive pupils present Extrem General: Yes normal to inspection Course Course Course Narrative: Reports onset of symptoms 3 weeks ago. One week ago was diagnosed with bronchitis and prescribed azithromycin, Tessalon, prednisone. Reports completing this treatment and did not feel better. She was then started on Augmentin and another course of prednisone which she began 3 days ago. She continues to have cough, nausea,reports inability to tolerate oral intake but no vomiting, diarrhea that began yesterday, subjective fever, body aches. 03/10/2023 CXR unremarkable. Plan: Tylenol, Zofran, viral testing Reevaluation(s) Reevaluation #1: 5620-- patient tested negative for COVID and flu. Given patient has been on multiple antibiotics, will obtain basic labs, stool culture/GI panel, and c diff test. 1530-- CBC with leukocytosis to 11.6, likely secondary to daily recent prednisone use. Chemistry without acute electrolyte abnormality requiring intervention. Renal function WNL. Received call from lab informing me that the patient's stool returned positive for norovirus. > informed patient of lab and stool results. Norovirus does not warrant antibiotic therapy. Treatment for this is symptomatic. Will send Zofran to her pharmacy. Informed her that this is very contagious. Patient has remained stable throughout ED visit today. Discussed worrisome signs and symptoms and when to return to the emergency department. All questions answered at this time. Patient is agreeable with disposition and stable for discharge. Medical Decision Making Medical Decision Making [facility] Narrative: 27 year old female with pmhx significant for presents to the ED today for evaluation of nausea, diarrhea, and epigastric abdominal pain x10 hours. Vital signs notable for tachycardia to 112. Afebrile. Normotensive. Patient is nontoxic appearing and in NAD. RRR. Lungs CTA b/l. Actively coughing on exam. Abdomen is soft, nondistended, mildly tender to palpation of the epigastric region, no rebound tenderness or guarding, normoactive bsx4. No CVAT. Clinical concern for viral syndrome, bronchitis, gastroenteritis, gastritis, PUD, c diff, traveler's diarrhea, medication side effect. Unlikely pneumonia, pneumothorax, diverticulosis, diverticulitis, hemorrhoid, ischemic bowel, SBO, acute abdomen, appendicitis, cholecystitis, pancreatitis, toxic megacolon. Plan for serology, basic labs, and stool panel. Differential Diagnosis Differential Diagnoses: The differential diagnosis associated with the presentation includes as above Admission/Observation not indicated Lab Data [facility] Lab Attestation statement: I reviewed the patient's lab results. as above 03/12/23 14:09 03/12/23 14:09 Labs: Lab Results 03/12/23 03/12/23 03/12/23 Range/Units 11:46 11:58 13:53 WBC (4.8-10.8) X10*3/uL RBC (4.20-5.50) X10*6/uL Hgb (12.0-16.0) g/dl Hct (37.0-47.0) % MCV (80.0-98.0) fL MCH (27.0-33.0) pg MCHC (31.0-35.0) g/dl RDW (11.0-16.0) % Plt Count (160-400) X10*3/uL MPV (9.4-12.3) fL Immature Gran % (Auto) (0.0-0.4) % Neut % (Auto) (45-73) % Lymph % (Auto) (20-40) % [place] % (Auto) (2-11) % Eos % (Auto) (0-4) % Baso % (Auto) (0-2) % Lymph # (Auto) (1.2-4.9) X10*3/uL [place] # (Auto) (0.1-1.2) X10*3/uL Eos # (Auto) (0.0-0.4) X10*3/uL Baso # (Auto) (0.0-0.2) X10*3/uL Abs Immat Gran (auto) (0.00-0.03) X10*3/uL Absolute Neuts (auto) (2.0-8.3) x10*3/uL Absolute Nucleated RBC (0.0-0.012) X10*3/uL Nucleated RBC % (auto) (0.0-0.2) /100WBC Sodium (135-145) mmol/L Potassium (3.3-5.1) mmol/L Chloride (96-108) mmol/L Carbon Dioxide (22-29) mmol/L Anion Gap (12-20) BUN (9-16) mg/dL Creatinine (0.5-1.4) mg/dL Estim Creat Clear Calc Estimated GFR Random Glucose (60-115) mg/dL Lactic Acid 1.1 (0.5-2.0) mmol/L Calcium (8.4-10.2) mg/dL Magnesium (1.6-2.6) mg/dL Lipase (8-78) U/L Stl C. cayetanensis PCR Not Detected (Not Detect.) Stool Rotavirus A PCR Not Detected (Not Detect.) Stl Adenov F 40/41 PCR Not Detected (Not Detect.) Stool Astrovirus (PCR) Not Detected (Not Detect.) Stool Campylobacter PCR Not Detected (Not Detect.) Stool Cryptosporidium PCR Not Detected (Not Detect.) Stl Sh Tox Pr E STEC PCR Not Detected (Not Detect.) Stool E coli O157 PCR Not applicable (Not Detect.) Stl Enterotoxigenic E PCR Not Detected (Not Detect.) Stool EPEC (PCR) Not Detected (Not Detect.) Stool EAEC (PCR) Not Detected (Not Detect.) Stl E. histolytica PCR Not Detected (Not Detect.) Stool Giardia Lamblia PCR Not Detected (Not Detect.) Stl P. shigelloides PCR Not Detected (Not Detect.) Stool Salmonella PCR Not Detected (Not Detect.) Stool Sapovirus (PCR) Not Detected (Not Detect.) Stl Shigella/EIEC PCR Not Detected (Not Detect.) St Y.enterocolitica PCR Not Detected (Not Detect.) Stool Vibrio (PCR) Not Detected (Not Detect.) Stl Vibrio cholerae PCR Not Detected (Not Detect.) Stl Norovirus GI/GII PCR Detected A (Not Detect.) C. difficile Tox B Gene NEGATIVE (Negative) COVID-19 (TITA) Negative (Negative) COVID-19 Clin Com See Note Influenza Type A (KATIE) Negative (Negative) Influenza Type B (KATIE) Negative (Negative) Influenza A & B Note See Note 03/12/23 Range/Units 14:09 WBC 16.4 H (4.8-10.8) X10*3/uL RBC 5.02 (4.20-5.50) X10*6/uL Hgb 13.6 (12.0-16.0) g/dl Hct 41.8 (37.0-47.0) % MCV 83.3 (80.0-98.0) fL MCH 27.1 (27.0-33.0) pg MCHC 32.5 (31.0-35.0) g/dl RDW 12.9 (11.0-16.0) % Plt Count 345 (160-400) X10*3/uL MPV 9.5 (9.4-12.3) fL Immature Gran % (Auto) 0.4 (0.0-0.4) % Neut % (Auto) 79.5 H (45-73) % Lymph % (Auto) 13.3 L (20-40) % [place] % (Auto) 5.9 (2-11) % Eos % (Auto) 0.7 (0-4) % Baso % (Auto) 0.2 (0-2) % Lymph # (Auto) 2.2 (1.2-4.9) X10*3/uL [place] # (Auto) 1.0 (0.1-1.2) X10*3/uL Eos # (Auto) 0.1 (0.0-0.4) X10*3/uL Baso # (Auto) 0.0 (0.0-0.2) X10*3/uL Abs Immat Gran (auto) 0.06 H (0.00-0.03) X10*3/uL Absolute Neuts (auto) 13.0 H (2.0-8.3) x10*3/uL Absolute Nucleated RBC 0.000 (0.0-0.012) X10*3/uL Nucleated RBC % (auto) 0.0 (0.0-0.2) /100WBC Sodium 139 (135-145) mmol/L Potassium 3.6 (3.3-5.1) mmol/L Chloride 107 (96-108) mmol/L Carbon Dioxide 23 (22-29) mmol/L Anion Gap 13 (12-20) BUN 13 (9-16) mg/dL Creatinine 0.63 (0.5-1.4) mg/dL Estim Creat Clear Calc 131.0 Estimated GFR > 60 Random Glucose 92 (60-115) mg/dL Lactic Acid (0.5-2.0) mmol/L Calcium 9.2 (8.4-10.2) mg/dL Magnesium 1.9 (1.6-2.6) mg/dL Lipase 13 (8-78) U/L Stl C. cayetanensis PCR (Not Detect.) Stool Rotavirus A PCR (Not Detect.) Stl Adenov F 40/41 PCR (Not Detect.) Stool Astrovirus (PCR) (Not Detect.) Stool Campylobacter PCR (Not Detect.) Stool Cryptosporidium PCR (Not Detect.) Stl Sh Tox Pr E STEC PCR (Not Detect.) Stool E coli O157 PCR (Not Detect.) Stl Enterotoxigenic E PCR (Not Detect.) Stool EPEC (PCR) (Not Detect.) Stool EAEC (PCR) (Not Detect.) Stl E. histolytica PCR (Not Detect.) Stool Giardia Lamblia PCR (Not Detect.) Stl P. shigelloides PCR (Not Detect.) Stool Salmonella PCR (Not Detect.) Stool Sapovirus (PCR) (Not Detect.) Stl Shigella/EIEC PCR (Not Detect.) St Y.enterocolitica PCR (Not Detect.) Stool Vibrio (PCR) (Not Detect.) Stl Vibrio cholerae PCR (Not Detect.) Stl Norovirus GI/GII PCR (Not Detect.) C. difficile Tox B Gene (Negative) COVID-19 (TITA) (Negative) COVID-19 Clin Com Influenza Type A (KATIE) (Negative) Influenza Type B (KATIE) (Negative) Influenza A & B Note External Record Review External record reviewed: Inpatient record Tests considered The following testing was considered but not selected: Considered obtaining CT abdomen and pelvis however patient's abdomen nontender to palpation, no concern for acute abdomen, not warranted. Prescription Management I considered prescription management with: Pain Medication and Antibiotic Social Determinants Patient?s care significantly limited by Social Determinants of Health including: Other Social Determinant of Health Medications Administered Discontinued Medications Generic Name Dose Route Start Last Admin Trade Name Freq PRN Reason Stop Dose Admin Acetaminophen 975 mg 03/12/23 11:25 03/12/23 11:29 Acetaminophen 325 Mg Tablet PO 03/12/23 11:26 975 mg ONCE ONE Administration Ondansetron HCl 4 mg 03/12/23 11:25 03/12/23 11:29 Ondansetron Odt 4 Mg Tab.Rapdis TRANSLINGU 03/12/23 11:26 4 mg ONCE ONE Administration Critical Care Time Critical Care Time Critical Care Time: No Discharge Plan Discharge Clinical Impression: Norovirus Patient Disposition: Home, Self-Care Instructions: Gastroenteritis (ED), Acute Nausea and Vomiting (ED), Acute Diarrhea (ED) Additional Instructions: Your labs today were normal. Your stool was negative for C diff. Your stool returned positive for norovirus. This is a virus within the GI tract. It is very contagious. You can contract this from coming into contact with someone who has norovirus, eating contaminated food or water, or coming into contact with contaminated surfaces. This does not warrant antibiotic treatment. The treatment for this is symptomatic. Make sure you are staying hydrated and getting lots of rest. Make sure you are practicing good hand hygiene. Bi has been sent to your pharmacy. Take this as needed for nausea/vomiting. If symptoms persist or worsen please return to the emergency department. The case of an emergency call 911. Prescriptions: New ondansetron HCl 4 mg tablet 4 mg PO DAILY PRN (Reason: nausea and vomiting) 4 Days Qty: 10 0RF No Action ibuprofen 600 mg tablet 600 mg PO Q6H PRN (Reason: fever or pain) Qty: 30 0RF Referrals: Physician,Unknown J [Primary Care Provider] - Interventions: ED Discharge Assessment Last Done: 03/12/23 16:04 Discharge Date/Time: 03/12/23 16:04
[2023-03-12] MEDS: Acetaminophen 325 MG TABLET 975 MG PO (11:29)
[2023-03-12] MEDS: Ondansetron ODT 4 MG TAB.RAPDIS TRANSLINGU (11:29)
[2023-03-12 12:10] LABS: COVID-19 Test Negative (Negative); IDNOW Serial# 58CA691E
[2023-03-12 12:13] LABS: Lactic Acid 1.1 mmol/L (0.5-2.0)
[2023-03-12 12:41] LABS: IDNOW Serial# BCCEAD1C; Influenza A Negative (Negative); Influenza B2 Negative (Negative)
[2023-03-12 14:13] LABS: MANUAL DIFF FLAG NO
[2023-03-12 14:14] LABS: Basophils Percent Auto 0.2 % (0-2); Eosinophils Absolute Auto 0.1 X10*3/uL (0.0-0.4); Eosinophils Percent Auto 0.7 % (0-4); Hematocrit 41.8 % (37.0-47.0); Hemoglobin 13.6 g/dl (12.0-16.0); Imm Gran Abs Auto 0.06 X10*3/uL (0.00-0.03); Imm Gran Pct Auto 0.4 % (0.0-0.4); Lymphocytes Absolute Auto 2.2 X10*3/uL (1.2-4.9); Lymphocytes Percent Auto 13.3 % (20-40); Mean Corpuscular HGB Conc 32.5 g/dl (31.0-35.0); Mean Corpuscular Hemoglobin 27.1 pg (27.0-33.0); Mean Corpuscular Volume 83.3 fL (80.0-98.0); Mean Platelet Volume 9.5 fL (9.4-12.3); Monocytes Percent Auto 5.9 % (2-11); Neutrophils Percent Auto 79.5 % (45-73); Platelet Count 345 X10*3/uL (160-400); Red Blood Count 5.02 X10*6/uL (4.20-5.50); Red Cell Distribution Width 12.9 % (11.0-16.0); White Blood Count 16.4 X10*3/uL (4.8-10.8)
[2023-03-12 14:39] LABS: Anion Gap 13 (12-20); Blood Urea Nitrogen 13 mg/dL (9-16); Calcium 9.2 mg/dL (8.4-10.2); Carbon Dioxide 23 mmol/L (22-29); Chloride 107 mmol/L (96-108); Estimated Glomerular Filt Rate > 60; Glucose Random 92 mg/dL (60-115); Potassium 3.6 mmol/L (3.3-5.1); Sodium 139 mmol/L (135-145)
[2023-03-12 14:40] LABS: Lipase 13 U/L (8-78); Magnesium 1.9 mg/dL (1.6-2.6)
[2023-03-12 15:15] LABS: CDiff Gene PCR NEGATIVE (Negative)
[2023-03-12 15:32] LABS: Adenovirus F 40/41 Not Detected (Not Detect.); Astrovirus Not Detected (Not Detect.); Campylobacter Not Detected (Not Detect.); Cryptosporidium Not Detected (Not Detect.); Cyclospora cayetanensis Not Detected (Not Detect.); E. coli EAEC Not Detected (Not Detect.); E. coli EPEC Not Detected (Not Detect.); E. coli ETEC Not Detected (Not Detect.); E. coli STEC Not Detected (Not Detect.); Entamoeba histolytica Not Detected (Not Detect.); Giardia lamblia Not Detected (Not Detect.); Plesiomonas shigelloides Not Detected (Not Detect.); Rotavirus A Not Detected (Not Detect.); Salmonella Not Detected (Not Detect.); Sapovirus Not Detected (Not Detect.); Shigella sp./EIEC Not Detected (Not Detect.); Vibrio Not Detected (Not Detect.); Vibrio Cholerae Not Detected (Not Detect.); Yersinia enterocolitica Not Detected (Not Detect.)
[2023-03-12 15:36] LABS: Norovirus GI/GII Detected (Not Detect.)
== END 2023-03-12 16:04 | disposition home or self-care (01) ==
PROVIDERS: Nurse Practitioner Family; Physician Assistant Medical; Emergency Provider Student in an Organized Health Care Education/Training Program
DX: A08.11 Acute gastroenteropathy due to Norwalk agent (principal); J40 Bronchitis, not specified as acute or chronic; Z11.52 Encounter for screening for COVID-19
CPT/HCPCS: 36415; 80048; 83605; 83690; 83735; 85025; 87493; 87502; 87507; 87635; 99283

== ENCOUNTER 2023-03-31 17:30 | Outpatient (REF) | payer MEDICAID, SELFPAY | END 2023-03-31 17:31 | disposition home or self-care (01) | LOC: HO.HHCLNP 17:30 | PROVIDERS: Visit Provider Internal Medicine | DX: N89.8 Other specified noninflammatory disorders of vagina (principal) | CPT/HCPCS: 36415; 81513 ==

== ENCOUNTER 2024-06-29 14:16 | Emergency (ER) | payer MEDICAID, SELFPAY ==
--- NOTE | ~2024-06-29 | CT_ITS ---
CLINICAL HISTORY: change h a frequency, intensity, + facial numbness CT HEAD WITHOUT CONTRAST Comparison: None Findings: No acute intracranial hemorrhage, extra-axial fluid collection, hydrocephalus or midline shift. No significant atrophy-like change No significant white matter disease. No evidence for acute large territorial infarct. There is no sinus or mastoid fluid. Visualized orbits: No acute abnormalities. There is no acute fracture. IMPRESSION: 1. No acute intracranial process. This document has been electronically signed by: Jamila Roberts DO on 06/29/2024 16:49:10
[2024-06-29 14:37] VITALS: BP 107/69; PULSE 78; RESP 16; TEMP 37; O2SAT 97; BMI 36.5
--- NOTE | 2024-06-29 14:38 | ED.GENADULT ---
HPI - General Adult General Chief complaint: Headache Stated complaint: headache facial numbness Time Seen by Provider: 06/29/24 15:06 Source: patient Mode of arrival: ambulatory Limitations: no limitations History of Present Illness ED Provider: nadia shah np HPI narrative: Patient is a 29-year-old female who presents emergency department for evaluation. She has been experiencing an increase in frequency of her since about March of 2024. She states that they occur daily or every other day. Occasionally she might have a stretcher 2-3 days where she does not have a headache. They are typically unilateral, and she experiences associated numbness to the side of her face where the headache is present. She has been following with her primary care doctor multiple times for this. In March she was started on Fioricet and propranolol, in May she was started on topiramate, and states she has not noticed any change in their frequency. At home she has trialed acetaminophen and ibuprofen without any relief. She reports that she has seen a neurologist before, approximately 1 year ago believes this was through [facility], was advised that she needed glasses but despite getting glasses she continues to have these headaches. It seems her headache history is extensive over many years, endorsing having an MRI of the brain in 2019 without any abnormal findings. High concern today is that she has been experiencing this headache since yesterday without any relief, and again the increased frequency since earlier this year. Denies any red flag symptoms including fevers, chills, neck stiffness, malaise, aphasia, weakness, poor coordination, descriptors such as ?the worst headache ever ?or ?thunderclap?, or painful temporal region. Denies dizziness, lightheadedness, vision changes, URI symptoms, chest pain, shortness of breath, numbness or tingling of the extremities. Related Data Previous Rx's ?Medication ?Instructions ?Recorded ibuprofen 600 mg tablet 600 mg PO Q6H PRN fever or pain 01/05/23 #30 tabs ondansetron HCl 4 mg tablet 4 mg PO DAILY PRN nausea and 03/12/23 vomiting 4 days #10 tabs topiramate 50 mg tablet 50 mg PO DAILY #30 tabs 06/29/24 Allergies Allergy/AdvReac Type Severity Reaction Status Date / Time No Known Allergies Allergy Verified 06/29/24 14:40 [No Known Allergies*] Review of Systems Review of Systems: Yes all other systems are reviewed and are negative [facility] Past Medical History Attestation statement: The following information was validated with the patient. Source: old records reviewed Medical History Patient denies significant medical history Social History Social History Alcohol intake: never Advance Directives: No Advance Directives Information Provided: No Do you have a plan to hurt others: No Plan Patient : No Physical Exam ED Vital Signs: Vital Signs - 24 hr 06/29/24 14:37 06/29/24 15:32 06/29/24 18:13 Temperature 98.6 F 98.2 F 98.1 F Pulse Rate 78 85 87 Respiratory Rate 16 16 16 Blood Pressure 107/69 104/54 L 98/52 L Pulse Oximetry 97 97 98 Oxygen Delivery Method Room Air Room Air Room Air BMI result Body Mass Index 36.5 Appearance: Alert.?Oriented to person, place and time. No acute distress.?Normal affect. Head: Normocephalic, atraumatic Eyes: Pupils equal, round and reactive to light. EOMI. No nystagmus. No ptosis. No tenderness to palpation over the temporal region. ENT: External auditory canal normal tympanic membrane pearly osorio and intact bilaterally. Oropharynx normal. Neck: Normal inspection.? Neck supple. No nuchal rigidity. CVS: Heart sounds normal. Normal heart rate and rhythm.? Pulses normal.?? Respiratory: No respiratory distress.? Lung sounds clear to auscultation bilaterally?? Abdomen: Soft and non-tender. Normoactive bowel sounds. ?? Skin: Skin warm and dry.? Normal skin color.? ?? Extremities: No lower extremity edema.? Neuro: Moves all extremities spontaneously. Sensation intact bilaterally. CN II-XII intact. No focal neuro deficits. Ambulatory with steady gait. NIH Stroke Scale Time: 15:20 Level of Consciousness: Alert Level of Consciousness Questions: Answers both questions correctly Level of Consciousness Commands: Performs both tasks correctly Best Gaze: Normal Visual: No visual loss Facial Palsy: Normal Motor Arm (Right): No drift Motor Arm (Left): No drift Motor Leg (Right): No drift Motor Leg (Left): No drift Limb Ataxia: Absent Sensory: Normal Best Language: No aphasia Dysarthia: Normal Extinction and Inattention: No abnormality Score: 0 Course Course Course Narrative: This is a rapid medical exam performed by Zaid Lynch NP: Additional HPI, ROS, PE not included below will be deferred to primary provider. 06/29/24 14:38 Patient is a 29-year-old female presenting to the ED with complaint of headache for months. At times has numbness to one side of face, yesterday was right side, today is left side. Has seen PCP for this multiple time and tried different medications all without relief. Plan: will start with basic labs, will defer potential imaging to primary provider Reevaluation(s) Reevaluation #1: Head CT without acute pathology, symptomatic relief after Toradol Reglan and Benadryl. Medications Administered Discontinued Medications Generic Name Dose Route Start Last Admin Trade Name Freq PRN Reason Stop Dose Admin Diphenhydramine HCl 25 mg 06/29/24 17:01 06/29/24 17:14 Diphenhydramine Hcl 50 Mg/Ml Vial IVPUSH 06/29/24 17:02 25 mg ONCE ONE Administration Sodium Chloride 1,000 mls @ 999 mls/hr 06/29/24 17:15 06/29/24 17:14 Ns IV 06/29/24 18:15 999 mls/hr .Q1H1M MILLER Administration Ketorolac Tromethamine 15 mg 06/29/24 17:01 06/29/24 17:14 Ketorolac Tromethamine 15 Mg/Ml Vial IVPUSH 06/29/24 17:02 15 mg ONCE ONE Administration Metoclopramide HCl 10 mg 06/29/24 17:01 06/29/24 17:14 Metoclopramide Hcl 10 Mg/2 Ml Vial IVPUSH 06/29/24 17:02 10 mg ONCE ONE Administration Medical Decision Making Medical Decision Making MDM Narrative: Patient is a 29-year-old female who presents emergency department for evaluation headache, ongoing for many years, with increased frequency over the past 3 months as per HPI, additionally with associated facial numbness unilaterally corresponding with the headache. Concern for possible hemiplegic migraine. On evaluation she has no focal neurological deficits, NIH stroke score is 0. I have a low clinical suspicion for CVA, most recent radiographic imaging of the brain was reportedly in 2019, will obtain head CT to exclude acute intracranial pathology such as RESORT KEEPER mass. She has no recent ill like symptoms, URI, nuchal rigidity to suggest meningitis, has no associated confusion. Headache is not worsened by exertion, no red flag symptoms no vision changes, under the age of 15 has no immunocompromise and conditions. Trial abortive therapy in the emergency department, discussed with patient is imaging is negative, I would recommend that she seek a 2nd opinion from a neurologist, we also discussed increasing her topiramate from 25 mg to 50 mg she has been on this dosage for the past month without improvement, she will need to continue following up with her primary care doctor until she is seen by a neurologist. Differential Diagnosis Differential Diagnoses: The differential diagnosis associated with the presentation includes (SDH, SAH, ICH, RESORT KEEPER mass, meningitis, encephalitis, CVA, GCA, migraine, headache) Admission/Observation Consideration of admission/observation: Escalation of care including admission/observation considered Lab Data MDM Lab Attestation statement: I reviewed the patient's lab results. CBC is without leukocytosis anemia or thrombocytopenia. No electrolyte derangement. No CORRINE. LFTs are unremarkable. HCG is negative. 06/29/24 14:51 06/29/24 14:51 Labs: Lab Results 06/29/24 Range/Units 14:51 WBC 9.0 (4.8-10.8) X10*3/uL RBC 4.95 (4.20-5.50) X10*6/uL Hgb 13.8 (12.0-16.0) g/dl Hct 41.5 (37.0-47.0) % MCV 83.8 (80.0-98.0) fL MCH 27.9 (27.0-33.0) pg MCHC 33.3 (31.0-35.0) g/dl RDW 12.8 (11.0-16.0) % Plt Count 312 (160-400) X10*3/uL MPV 9.8 (9.4-12.3) fL Immature Gran % (Auto) 0.1 (0.0-0.4) % Neut % (Auto) 61.2 (45-73) % Lymph % (Auto) 31.0 (20-40) % [place] % (Auto) 5.7 (2-11) % Eos % (Auto) 1.3 (0-4) % Baso % (Auto) 0.7 (0-2) % Lymph # (Auto) 2.8 (1.2-4.9) X10*3/uL [place] # (Auto) 0.5 (0.1-1.2) X10*3/uL Eos # (Auto) 0.1 (0.0-0.4) X10*3/uL Baso # (Auto) 0.1 (0.0-0.2) X10*3/uL Abs Immat Gran (auto) 0.01 (0.00-0.03) X10*3/uL Absolute Neuts (auto) 5.5 (2.0-8.3) x10*3/uL Absolute Nucleated RBC 0.000 (0.0-0.012) X10*3/uL Nucleated RBC % (auto) 0.0 (0.0-0.2) /100WBC Sodium 139 (135-145) mmol/L Potassium 4.6 (3.3-5.1) mmol/L Chloride 108 (96-108) mmol/L Carbon Dioxide 26 (22-29) mmol/L Anion Gap 10 L (12-20) BUN 8 L (9-16) mg/dL Creatinine 0.61 (0.5-1.4) mg/dL Estim Creat Clear Calc 139.2 Estimated GFR > 60 Random Glucose 91 (60-115) mg/dL Calcium 9.1 (8.4-10.2) mg/dL Total Bilirubin 0.7 (0.0-1.0) mg/dL AST 24 (5-31) U/L ALT 19 (0-31) U/L Alkaline Phosphatase 75 (39-117) U/L Total Protein 7.6 (6.5-8.0) g/dL Albumin 4.0 (3.5-5.0) g/dL Beta HCG, Quant < 2 mIU/mL Radiology Impression Discussion of test interpretation with radiology: I have reviewed the radiologist's reading. Radiologist Impression: CT HEAD WITHOUT CONTRAST Comparison: None Findings: No acute intracranial hemorrhage, extra-axial fluid collection, hydrocephalus or midline shift. No significant atrophy-like change No significant white matter disease. No evidence for acute large territorial infarct. There is no sinus or mastoid fluid. Visualized orbits: No acute abnormalities. There is no acute fracture. IMPRESSION: 1. No acute intracranial process. External Record Review External record reviewed: Outpatient record Prescription Management I considered prescription management with: Pain Medication Discharge Plan Discharge Clinical Impression: Migraine Patient Disposition: Home, Self-Care Instructions: Migraine Headache (ED) Additional Instructions: CT scan of the brain did not show any abnormal findings. As discussed, it is important that you follow-up with your primary care doctor, UA speak with them directly about having a 2nd opinion with a neurologist. Given you have been on the topiramate 25 mg for the past month, recommend at this time that you increased to 50 mg and follow-up do doctor's accordingly. You may return to emergency department any new or worsening symptoms or concerns. Prescriptions: New topiramate 50 mg tablet 50 mg PO DAILY Qty: 30 0RF No Action ibuprofen 600 mg tablet 600 mg PO Q6H PRN (Reason: fever or pain) Qty: 30 0RF ondansetron HCl 4 mg tablet 4 mg PO DAILY PRN (Reason: nausea and vomiting) 4 Days Qty: 10 0RF Referrals: Jesica Burroughs MD [Primary Care Provider] - Print Language: Portuguese
--- OUTSIDE RECORDS SUMMARY | 2024-06-29 14:50 | XMS_ITS | Encounter Summary ---
Author Organization [employer] Address [address] [place] [address] Care Team Providers Care Strategy Analyst Name Role Phone Jesica Burroughs MD Primary Care Provide r Reason for Visit * Reason Onset Date Comments Medication Question 04/22/2024 Encounter Details Date Type Department Care Team ([facility] st Contact Info) Description 04/22/2024 Telephone [facility] MEDICINE [address] [place], [place] [phone] Jesica Burroughs MD [address] [place], [place] [phone] Medication Question Social History Tobacco Use Types Packs/Day Years Used Date Smoking Tobacco: Never Passive Smoke Exposure: Never Smokeless Tobacco: Never Alcohol Use Standard Drinks/Week Comments Never 0 (1 standard drink = 0.6 oz pur e alcohol) Depression Answer Date Recorded Patient Health Questionnaire-9 Score 0 04/01/2024 Patient Health Questionnaire-9 Score 0 04/01/2024 Last PHQ-9: Questionnaire Data Not on file 0 04/01/2024 Housing Stability Answer Date Recorded What is your housing situation today? I have [place] 01/04/[address] you li ve. Do you have problems with any of the following? None of the above 01/04/2023 Food Insecurity Answer Date Recorded Within the past 12 months, y ou worried that your food would run out before you got money to buy more: Never True 01/04/2023 Within the past 12 months,th e food you bought just didn't last and you didn't have enough money to get more: Never True Transportation Answer Date Recorded In the past 12 months, has l ack of transportation kept you from medical appts, meetings, work or from getting things needed for daily living? No 03/22/2023 Utilities Answer Date Recorded In the past 12 months, has t he electric, gas, oil or water company threatened to shut off services in your home? No 01/04/2023 Depression Answer Date Recorded Patient Health Questionnaire-2 Score 0 04/01/2024 Internet Access Answer Date Recorded Internet Access Q1 Yes 03/22/2024 Internet Access Q2 Not on file 03/22/2024 Comments Unknown Sex and Gender Information Value Date Recorded Sex Assigned at Female 01/17/2022 10:18 AM EDT Legal Sex Female 10:18 AM EDT Gender Identity Female 01/17/2022 10:18 AM EDT Sexual Orientation Straight 01/17/2022 10 :18 AM EDT documented as of this encounter Miscellaneous Notes * Telephone Encounter - Ovidio Rivers - 04/22/2024 3:12 PM EST TC from pt reports received a letter from insurance for Tirzepatide-Weight Management (Zepbound) 2.5 MG/0.5ML solution auto-injector . Script was denied. Pt would like to talk about alternatives or next step documented in this encounter Plan of Treatment Upcoming Encounters Date Type Department Care Team (Late st Contact Info) Description 07/22/2024 3:30 PM EDT Telemedicine [facility] MEDICINE [address] [place] [address] Jesica Burroughs MD [address] [place] [address] documented as of this encounter Visit Diagnoses Not on filedocumented in this encounter Additional Health Concerns Assessment Noted Time PHQ-9 Depression Total Score: 0 04/01/19 25 3:06 PM EST documented as of this encounter Care Teams Strategy Analyst Relationship Specialty Start Date End Date Jescia Burroughs MD [address] [place] [address] PCP - General Family Medicine 01/31/19 documented as of this encounter
--- OUTSIDE RECORDS SUMMARY | 2024-06-29 14:50 | XMS_ITS | Encounter Summary ---
Author Organization [employer] Address [address] [place] [address] Care Team Providers Care Forestry Laborer Name Role Phone Jesica Burroughs MD Primary Care Provide r Reason for Visit * Reason Onset Date Comments Prior Authorization 04/25/2024 Medication Question 04/25/2024 Encounter Details Date Type Department Care Team ([facility] st Contact Info) Description 04/25/2024 Telephone [facility] MEDICINE [address] [place], [place] [phone] Jesica Burroughs MD [address] [place], [place] [phone] Prior Authorization; Medication Question Social History Tobacco Use Types [...] encounter Miscellaneous Notes * Telephone Encounter - Dani Murray - 04/25/2024 12:56 PM EST Tc from pt requesting a call back regarding her PA denial for her zepbound. Would like to discuss next steps. Pt Contact: [phone] documented in this encounter Plan of Treatment Upcoming Encounters Date Type Department Care Team (Late st Contact Info) Description 07/22/2024 3:30 PM EDT Telemedicine [facility] MEDICINE [address] [place] [address] Jesica Burroughs MD [address] [place] [address] documented as of this encounter Visit Diagnoses Not on filedocumented in this encounter Additional Health Concerns Assessment Noted Time PHQ-9 Depression Total Score: 0 04/01/19 25 3:06 PM EST documented as of this encounter Care Teams Forestry Laborer Relationship Specialty Start Date End Date Jesica Burroughs MD [address] [place] [address] PCP - General Family Medicine 01/31/19 documented as of this encounter
--- OUTSIDE RECORDS SUMMARY | 2024-06-29 14:50 | XMS_ITS | Encounter Summary ---
Author Organization [employer] Address [address] [place] [address] Care Team Providers Care Manager Hvac Name Role Phone Jesica Burroughs MD Primary Care Provide r Encounter Details Date Type Department Care Team ([facility] Contact Info) Description 05/13/2022 Abstract [facility] MEDICINE [address] [place] [phone] Jesica Burroughs MD [address] [place] [address] Social History Tobacco Use Types Packs/Day Years Used Date Smoking Tobacco: Never Depression Answer Date Recorded Patient Health Questionnaire-2 Score 0 05/16/2022 Comments Unknown Sex and Gender Information Value Date Recorded Sex Assigned at Female 01/17/2022 10:18 AM EDT Legal Sex Female 10:18 AM EDT Gender Identity Female 01/17/2022 10:18 AM EDT Sexual Orientation Straight 01/17/2022 10 :18 AM EDT COVID-19 Exposure Response Date Recorded In the last 10 days, have yo u been in contact with someone who was confirmed or suspected to have Coronavirus/COVID-19? No / Unsure 05/16/2022 9:57 AM EST documented as of this encounter Plan of Treatment Upcoming Encounters Date Type Department Care Team ([facility] Contact Info) Description 07/22/2024 3:30 PM EDT Telemedicine [facility] MEDICINE [address] [place] [address] Jesica Burroughs MD [address] [place] [address] documented as of this encounter Procedures Procedure Name Priority Date/Time Associated Diagnosis Comments PAP SMEAR Routine 08/26/2018 12:00 AM EDT documented in this encounter Results * Pap Smear (08/26/2018 12:00 AM EDT) Swab us Cece Macias [facility] CYTOLOGY ORDERABLES F inal Result [address], [place] [address] documented in this encounter Visit Diagnoses Not on filedocumented in this encounter Care Teams Manager Hvac Relationship Specialty Start Date End Date Jesica Burroughs MD [address] [place] [address] PCP - General Family Medicine 01/31/19 documented as of this encounter
[2024-06-29 14:55] LABS: MANUAL DIFF FLAG NO
[2024-06-29 14:57] LABS: Basophils Absolute Auto 0.1 X10*3/uL (0.0-0.2); Basophils Percent Auto 0.7 % (0-2); Eosinophils Absolute Auto 0.1 X10*3/uL (0.0-0.4); Eosinophils Percent Auto 1.3 % (0-4); Hematocrit 41.5 % (37.0-47.0); Hemoglobin 13.8 g/dl (12.0-16.0); Imm Gran Abs Auto 0.01 X10*3/uL (0.00-0.03); Imm Gran Pct Auto 0.1 % (0.0-0.4); Lymphocytes Absolute Auto 2.8 X10*3/uL (1.2-4.9); Mean Corpuscular HGB Conc 33.3 g/dl (31.0-35.0); Mean Corpuscular Hemoglobin 27.9 pg (27.0-33.0); Mean Corpuscular Volume 83.8 fL (80.0-98.0); Mean Platelet Volume 9.8 fL (9.4-12.3); Monocytes Absolute Auto 0.5 X10*3/uL (0.1-1.2); Monocytes Percent Auto 5.7 % (2-11); Neutrophils Absolute Auto 5.5 x10*3/uL (2.0-8.3); Neutrophils Percent Auto 61.2 % (45-73); Platelet Count 312 X10*3/uL (160-400); Red Blood Count 4.95 X10*6/uL (4.20-5.50); Red Cell Distribution Width 12.8 % (11.0-16.0)
[2024-06-29 15:16] LABS: Alanine Aminotransferase 19 U/L (0-31); Alkaline Phosphatase 75 U/L (39-117); Anion Gap 10 (12-20); Aspartate Amino Transferase 24 U/L (5-31); Bilirubin Total 0.7 mg/dL (0.0-1.0); Blood Urea Nitrogen 8 mg/dL (9-16); Calcium 9.1 mg/dL (8.4-10.2); Carbon Dioxide 26 mmol/L (22-29); Chloride 108 mmol/L (96-108); Creatinine Clr Calc Pharmacy 139.2; Estimated Glomerular Filt Rate > 60; Glucose Random 91 mg/dL (60-115); Potassium 4.6 mmol/L (3.3-5.1); Sodium 139 mmol/L (135-145); Total Protein 7.6 g/dL (6.5-8.0)
[2024-06-29 15:20] LABS: HCG Quantitative < 2 mIU/mL
[2024-06-29 15:32] VITALS: BP 104/54; PULSE 85; RESP 16; TEMP 36.8; O2SAT 97
[2024-06-29] MEDS: Ketorolac Tromethamine 15 MG/ML VIAL IVPUSH (17:14)
[2024-06-29] MEDS: Metoclopramide HCl 10 MG/2 ML VIAL IVPUSH (17:14)
[2024-06-29] MEDS: 0.9 % Sodium Chloride 1,000 ML 999 ML IV (17:14)
[2024-06-29] MEDS: diphenhydrAMINE HCL 50 MG/ML VIAL 25 MG IVPUSH (17:14)
[2024-06-29 18:13] VITALS: BP 98/52; PULSE 87; RESP 16; TEMP 36.7; O2SAT 98
[2024-06-29 18:48] VITALS: BP 99/57; PULSE 85; RESP 16; TEMP 36.6; O2SAT 98
== END 2024-06-29 18:50 | disposition home or self-care (01) ==
PROVIDERS: Registered Nurse Emergency; Emergency Provider Emergency Medicine; PCP Internal Medicine
DX: G43.909 Migraine, unspecified, not intractable, without status migrainosus (principal); R20.0 Anesthesia of skin; Z79.899 Other long term (current) drug therapy
CPT/HCPCS: 36415; 70450; 80053; 84702; 85025; 96374; 96375; 99284; J1200; J1885; J2765

== ENCOUNTER → 2024-06-29 15:26 | Outpatient (BNV) | payer MEDICAID, SELFPAY | PROVIDERS: Emergency Provider Emergency Medicine; PCP Internal Medicine; Visit Provider Radiology Diagnostic Radiology | DX: R51.9 Headache, unspecified (principal) | CPT/HCPCS: 70450 ==

== ENCOUNTER 2025-01-16 14:58 | Emergency (ER) | payer MEDICAID, SELFPAY ==
--- NOTE | ~2025-01-16 | CT_ITS ---
CLINICAL HISTORY: LLQ pain CT abdomen and pelvis without contrast Comparison: None provided Findings: Lung bases clear. No acute bony abnormality. Periumbilical ventral hernia contains fat. No associated acute finding noted. Liver and spleen within normal limits. Pancreas and adrenal glands unremarkable. Gallbladder not identified, Correlate with surgical history. No bilateral renal stone or hydronephrosis. No focal renal abnormality or ureteral dilation. No evidence for aortic aneurysm. No free fluid or adenopathy in the pelvis. No diverticulitis. Appendix not identified. Uterus normal size. No adnexal abnormality. Impression: No acute processes This document has been electronically signed by: Jesus Flores MD on 01/16/2025 19:15:41
--- NOTE | ~2025-01-16 | US_ITS ---
CLINICAL HISTORY: llQ pelvic pain. torsion? Transabdominal and transvaginal pelvic ultrasound Bilateral ovarian Doppler studies Comparison: 01/04/2023 Findings: Uterus 8.8 x 3.1 x 3.9 cm. Endometrium 9 mm. Trace fluid in endometrium. 3 mm endometrial cyst. No significant cul-de-sac fluid. Right ovary 3.1 x 2.2 x 2.5 cm. No significant abnormality. Left ovary 3.5 x 2.7 x 2.6 cm. 9.9 cm dominant follicle. Color and spectral Doppler assessment of both ovaries. Normal flow to both ovaries, no evidence for torsion. Impression: No significant abnormality This document has been electronically signed by: Jesus Flores MD on 01/16/2025 20:03:55
--- OUTSIDE RECORDS SUMMARY | 2025-01-16 14:20 | XMS_ITS | Encounter Summary ---
Author Organization [employer] Address [address] [place] [address] Care Team Providers Care Cushion Worker Name Role Phone Jesica Burroughs MD Primary Care Provide r Encounter Details Date Type Department Care Team (Late st Contact Info) Description 01/16/2025 2:20 PM EDT Office Visit [facility] [address] [place] [address] [phone] Sienna Luong MD [address] [place], [place] [phone] LLQ abdominal pain (Primary Dx) Social History Tobacco Use Types Packs/Day Years Used Date Smoking Tobacco: Never Passive Smoke Exposure: Never Smokeless Tobacco: Never Alcohol Use Standard Drinks/Week Comments Never 0 (1 standard drink = 0.6 oz pur e alcohol) Depression Answer Date Recorded Patient Health Questionnaire-9 Score 9 09/03/2024 Patient Health Questionnaire-9 Score 9 09/03/2024 Last PHQ-9: Questionnaire Data Not on file 0 09/03/2024 Housing Stability Answer Date Recorded What is [...] Date Recorded Patient Health Questionnaire-2 Score 0 09/03/2024 Internet Access Answer Date Recorded Internet Access Q1 Yes 03/22/2024 Internet Access Q2 Not on file 03/22/2024 Comments Unknown Sex and Gender Information Value Date Recorded Sex Assigned at Female 01/17/2022 10:18 AM EDT Legal Sex Female 10:18 AM EDT Gender Identity Female 01/17/2022 10:18 AM EDT Sexual Orientation Straight 01/17/2022 10 :18 AM EDT documented as of this encounter Last Filed Vital Signs Vital Sign Reading Time Taken Comments Blood Pressure 101/63 01/16/2025 2:04 PM EDT Pulse 80 01/16/2025 2:04 PM EDT Temperature 36.3 C (97.4 F) 01/16/2025 2:04 PM EDT Respiratory Rate 16 01/16/2025 2:04 PM EDT Oxygen Saturation 97% 01/16/2025 2:04 PM EDT Inhaled Oxygen Concentration - - Weight 75.9 kg (167 lb 4 oz) 01/16/2025 2:04 PM EDT Height 154.9 cm (5' 1 ) 01/16/2025 2:04 PM EDT Body Mass Index 31.6 01/16/2025 2:04 PM EDT documented in this encounter Progress Notes * Sienna Luong MD - 01/16/2025 2:20 PM EDT Subjective Patient ID: Jenna Griffin is a 29 y.o. female with past medical history appendectomy, cholecystectomy, right ectopic s/p tubal removal who presents to walk in clinic for abdominal pain. Abdominal Pain - Onset two days prior to visit - Pain described as strong and diffuse, all over the stomach now increased and localized greatestat LLQ. Worsening over the day to the point she had to leave work. - Pain severity significant enough that it is difficult to get onto exam table. Described as 10/10 at worst. - No diarrhea reported - No constipation reported - No vomiting reported - No known dietary triggers identified - No known sick contacts - Denies fever Gynecologic History - Last unprotected sex on December 14, 2024 - Denies current vaginal discharge - HCG urine negative Recent Medication Change - Zepbound not taken for past 2-3 weeks due to delay Review of Systems Constitutional: Negative for fever. Gastrointestinal: Positive for abdominal distention and abdominal pain. Negative for diarrhea, nausea and vomiting. Objective There were no vitals taken for this visit. There is no height or weight on file to calculate BMI. Physical Exam Constitutional: Appearance: Normal appearance. Cardiovascular: Rate and Rhythm: Normal rate and regular rhythm. Heart sounds: Normal heart sounds. Pulmonary: Effort: Pulmonary effort is normal. Breath sounds: Normal breath sounds. Abdominal: Palpations: Abdomen is soft. Tenderness: There is abdominal tenderness. Comments: Diffuse lower abdominal pain, greatly increased LLQ with guarding. No rebound. Musculoskeletal: Cervical back: Normal range of motion and neck supple. Neurological: General: No focal deficit present. Mental Status: She is alert. Psychiatric: Behavior: Behavior normal. Assessment & Plan LLQ abdominal pain 2 days increasing abdominal pain, now 10/10 with LLQ guarding. Pain is on left. History right ectopic. Hcg negative. Exam concerning for evolving acute abdomen. Will refer to ErRfor further evaluation. Orders: POCT Urine Future Appointments Date Time Provider Department Center 01/16/2025 2:20 PM [facility] 2 [facility] 02/12/2025 10:45 AM Cece Macias CNM [facility] This note was drafted using Ambient (AI) technology. The patient/patient's guardian has been informed and has consented to the use of this technology: yes documented in this encounter Plan of Treatment Upcoming Encounters Date Type Department Care Team ([facility] st Contact Info) Description 02/12/2025 10:45 AM EST Procedure Visit [address] [id number] Cece Macias CNM [address] [place] [address] documented as of this encounter Procedures Procedure Name Priority Date/Time Associated Diagnosis Comments POCT , URINE Routine 01/16/2025 2:13 PM EDT LLQ abdominal pain documented in this encounter Results * POCT Urine (01/16/2025 2:13 PM EDT) Preg Test, Ur Negative Negative, Indeterminate, None Detected, Invalid, Specimen unsatisfactory for evaluation, Weakly Positive, 2+ QC Media Lot # [id number] Lot# Expiration Date [id number] Urine 01/16/2025 2:13 PM EDT Sienan Luong MD POINT OF CARE TEST ENTER/E DIT ORDERABLES Final Result documented in this encounter Visit Diagnoses Diagnosis LLQ abdominal pain- Primary Abdominal pain, left lower quadrant documented in this encounter Additional Health Concerns Assessment Noted Time PHQ-9 Depression Total Score: 9 09/04/19 25 12:45 PM EDT documented as of this encounter Care Teams Cushion Worker Relationship Specialty Start Date End Date Jesica Burroughs MD [address] [place] [address] PCP - General Family Medicine 01/31/19 documented as of this encounter
[2025-01-16 15:38] VITALS: BP 101/59; PULSE 89; RESP 20; TEMP 37; O2SAT 98; BMI 28.0
--- NOTE | 2025-01-16 15:42 | ED_ITS ---
HPI - General Adult General Chief complaint: Abdominal Pain Stated complaint: abd pain Time Seen by Provider: 01/16/25 20:06 Source: patient Limitations: no limitations History of Present Illness ED Provider: Milena Masters PA-C HPI narrative: 29-year-old female with a history of obesity on Zepbound, migraine, history of prior right-sided ectopic now status post salpingectomy, status post appendectomy, status post cholecystectomy who presents with the abdominal pain times 2-3 days. Pain primarily over left lower abdomen, with the radiation up to epigastrium. Unable to describe the nature of her discomfort. Denies associated nausea vomiting diarrhea or constipation. Denies dysuria, no fevers. Denies pelvic pain. Related Data Home Medications ?Medication ?Instructions ?Recorded ?Confirmed [id number] 1 tab PO Q6H PRN hea dache 07/05/24 50 mg-325 mg-40 mg tablet phentermine 15 mg capsule 15 mg PO DAILY 07/05/24 Previous Rx's ?Medication ?Instructions ?Recorded ibuprofen 600 mg tablet 600 mg PO Q6H PRN fever or p ain 01/05/23 #30 tabs topiramate 50 mg tablet 50 mg PO DAILY #30 tabs 06/18 05/14 Allergies Allergy/AdvReac Type Severity Reaction Status Date / Time No Known Allergies (No Known Allergy Verified 01/16/25 15:42 Allergies*) Review of Systems 2 Review of Systems: Yes all other systems are reviewed and are negative Constitutional: Constitutional: Denies fatigue and Denies fever(s) Cardiovascular: Cardiovascular: Denies chest pain and Denies dyspnea Respiratory: Respiratory: Denies cough and Denies dyspnea Gastrointestinal: Gastrointestinal: Reports abdominal pain, Denies constipation, Denies nausea and Denies vomiting Genitourinary: Genitourinary: Denies dysuria and Denies pelvic pain Endocrine: Endocrine: Denies fatigue [facility] Past Medical History Attestation statement: The following information was validated with the patient. Medical History (Updated 01/17/25 @ 00:00 by [employer]) Delivery with history of Patient denies significant medical history Surgical History (Updated 07/05/24 @ 15:50 by Carlene Bolanos CMA) Hx of tubal ligation Hx of appendectomy Hx of cholecystectomy Family History Family History (Updated 07/05/24 @ 15:51 by Carlene Bolanos CMA) Mother Arthritis Hypertension Father Back problem Daughter No problems noted. Son Autism ADHD Social History Social History Alcohol intake: never Smoked in Last 30 Days: No Use of substances other than those prescribed or required for medical reasons: No Advance Directives: No Advance Directives Information Provided: No Physical Exam ED Vital Signs: Vital Signs - 24 hr 01/16/25 15:38 01/16/25 21:24 01/16/25 21:52 Temperature 98.6 F 97.9 F 97.9 F Pulse Rate 89 60 60 Respiratory Rate 20 16 16 Blood Pressure 101/59 L 98/50 L 105/55 L Pulse Oximetry 98 98 98 Oxygen Delivery Method Room Air Room Air Room Air BMI result Body Mass Index 28.0 Const Other: Alert well-appearing Orientation/consciousness: patient oriented x3 Resp Effort & Inspection: normal respiratory effort Cardio Other: Normal peripheral perfusion GI Other: Abdomen is soft, obese, nondistended, mild generalized tenderness without guarding Skin Other: Warm dry no rash Neuro General: patient oriented x3, gait normal, no focal motor deficits and CN's II- XI intact bilaterally Psych Other: cooperative Course Course Course Narrative: RME: 29-year-old female presents to ED for left lower quadrant abdominal pain. Patient is sent from primary care provider for evaluation. Labs UA ordered Medications Administered Discontinued Medications Generic Name Dose Route Start Last Admin Trade Name Freq PRN Reason Stop Dose Admin Ketorolac Tromethamine 15 mg 01/16/25 20:24 01/16/25 20:39 Ketorolac Tromethamine 15 Mg/Ml Vial IM 01/16/25 20:25 15 mg ONCE ONE Administration Simethicone 40 mg 01/16/25 20:28 01/16/25 21:51 Simethicone 40 Mg/0.6 Ml Oral.Susp PO 01/16/25 20:29 Not Given ONCE ONE Medical Decision Making Medical Decision Making MDM Narrative: 29-year-old female with a history of obesity on Zepbound, migraine, history of prior right-sided ectopic now status post salpingectomy, status post appendectomy, status post cholecystectomy who presents with the abdominal pain times 2-3 days. Pain primarily over left lower abdomen, with the radiation up to epigastrium. Unable to describe the nature of her discomfort. Denies associated nausea vomiting diarrhea or constipation. Denies dysuria, no fevers. Denies pelvic pain. Problem: Obesity and on Zepbound History: Per patient I have considered the following differential diagnoses: Diverticulitis, pancreatitis, constipation, side-effects from Zepbound, ectopic, torsion, UTI Plan: Patient is having some degree of left-sided abdominal pain that has nonspecific, she has no associated or GI symptoms. From triage, screening labs and a urinalysis ordered, transvaginal ultrasound and CT already completed, the patient is constipated, there was no other acute finding. We will send with home care instructions. She likely is having side effects from the Zepbound I have independently reviewed the following tests: Labs: No leukocytosis, not anemic, no electrolyte abnormality, not , urine not infected Transvaginal ultrasound:Findings: Uterus 8.8 x 3.1 x 3.9 cm. Endometrium 9 mm. Trace fluid in endometrium. 3 mm endometrial cyst. No significant cul-de-sac fluid. Right ovary 3.1 x 2.2 x 2.5 cm. No significant abnormality. Left ovary 3.5 x 2.7 x 2.6 cm. 9.9 cm dominant follicle. Color and spectral Doppler assessment of both ovaries. Normal flow to both ovaries, no evidence for torsion. Impression: No significant abnormality CT abdomen and pelvis:Lung bases clear. No acute bony abnormality. Periumbilical ventral hernia contains fat. No associated acute finding noted. Liver and spleen within normal limits. Pancreas and adrenal glands unremarkable. Gallbladder not identified, Correlate with surgical history. No bilateral renal stone or hydronephrosis. No focal renal abnormality or ureteral dilation. No evidence for aortic aneurysm. No free fluid or adenopathy in the pelvis. No diverticulitis. Appendix not identified. Uterus normal size. No adnexal abnormality. Impression: No acute processes Differential Diagnosis Differential Diagnoses: The differential diagnosis associated with the presentation includes See medical decision-making Admission/Observation Consideration of admission/observation: Escalation of care including admission/observation considered Not applicable Lab Data MDM Lab Attestation statement: I reviewed the patient's lab results. 01/16/25 15:48 01/16/25 15:48 Labs: Lab Results 01/16/25 01/16/25 Range/Units 15:48 20:35 WBC 10.0 (4.8-10.8) X10*3/uL RBC 4.56 (4.20-5.50) X10*6/uL Hgb 12.5 (12.0-16.0) g/dl Hct 39.6 (37.0-47.0) % MCV 86.8 (80.0-98.0) fL MCH 27.4 (27.0-33.0) pg MCHC 31.6 (31.0-35.0) g/dl RDW 13.0 (11.0-16.0) % Plt Count 304 (160-400) X10*3/uL MPV 10.0 (9.4-12.3) fL Immature Gran % (Auto) 0.2 (0.0-0.4) % Neut % (Auto) 58.3 (45-73) % Lymph % (Auto) 32.7 (20-40) % [place] % (Auto) 5.3 (2-11) % Eos % (Auto) 2.8 (0-4) % Baso % (Auto) 0.7 (0-2) % Lymph # (Auto) 3.3 (1.2-4.9) X10*3/uL [place] # (Auto) 0.5 (0.1-1.2) X10*3/uL Eos # (Auto) 0.3 (0.0-0.4) X10*3/uL Baso # (Auto) 0.1 (0.0-0.2) X10*3/uL Abs Immat Gran (auto) 0.02 (0.00-0.03) X10*3/uL Absolute Neuts (auto) 5.9 (2.0-8.3) x10*3/uL Absolute Nucleated RBC 0.000 (0.0-0.012) X10*3/uL Nucleated RBC % (auto) 0.0 (0.0-0.2) /100WBC Sodium 141 (135-145) mmol/L Potassium 4.0 (3.3-5.1) mmol/L Chloride 108 (96-108) mmol/L Carbon Dioxide 29 (22-29) mmol/L Anion Gap 8 L (12-20) BUN 10 (9-16) mg/dL Creatinine 0.53 (0.5-1.4) mg/dL Estim Creat Clear Calc 162.9 Estimated GFR > 60 Random Glucose 76 (60-115) mg/dL Calcium 8.8 (8.4-10.2) mg/dL Total Bilirubin 0.6 (0.0-1.0) mg/dL AST 28 (5-31) U/L ALT 27 (0-31) U/L Alkaline Phosphatase 71 (39-117) U/L Total Protein 7.2 (6.5-8.0) g/dL Albumin 3.9 (3.5-5.0) g/dL Lipase 25 (8-78) U/L Beta HCG, Quant < 2 mIU/mL Urine Color Yellow Urine Appearance Clear Urine pH 6.5 (5.0-9.0) Ur Specific [place] 1.025 (1.005-1.025) Urine Protein Negative (Neg-Trace) mg/dL Urine Glucose (UA) Negative (Negative) mg/dL Urine Ketones Negative (Negative) mg/dL Urine Blood Negative (Negative) Urine Nitrite Negative (Negative) Ur Leukocyte Esterase Negative (Negative) Radiology Impression Discussion of test interpretation with radiology: I have reviewed the radiologist's reading. Discharge Plan Discharge Clinical Impression: Constipation Patient Disposition: Home, Self-Care Instructions: Constipation (ED) Additional Instructions: All of your screening labs were completely normal you were not , your urine is not infected. The pelvic ultrasound was normal, the only finding on the CT scan is that you are constipated. See home care instructions. Use [id number]-zenbiey Colace 1 to 2 times a day, use [id number]-llq-aynfgqz MiraLax, 2 to 3 times a day, until your bowel habits self regulate. Follow up with your primary care as needed. The fact that you are on Zepbound , is most likely contributing to your symptoms, have further discussion with the person who is prescribing this medication you. These types of medications have numerous adverse side-effects in regard to gastrointestinal issues. Prescriptions: No Action topiramate 50 mg tablet 50 mg PO DAILY Qty: 30 0RF ibuprofen 600 mg tablet 600 mg PO Q6H PRN (Reason: fever or pain) Qty: 30 0RF phentermine 15 mg capsule 15 mg PO DAILY [id number] 50-325-40 mg tablet 1 tab PO Q6H PRN (Reason: headache) Stand Alone Forms: Work/School Release Interventions: ED Discharge Assessment Last Done: 01/16/25 21:52 Discharge Date/Time: 01/16/25 21:54 Print Language: Gibraltarian
[2025-01-16 15:52] LABS: MANUAL DIFF FLAG NO
[2025-01-16 16:00] LABS: Hematocrit 39.6 % (37.0-47.0); Hemoglobin 12.5 g/dl (12.0-16.0); Imm Gran Abs Auto 0.02 X10*3/uL (0.00-0.03); Imm Gran Pct Auto 0.2 % (0.0-0.4); Lymphocytes Absolute Auto 3.3 X10*3/uL (1.2-4.9); Mean Corpuscular HGB Conc 31.6 g/dl (31.0-35.0); Mean Corpuscular Hemoglobin 27.4 pg (27.0-33.0); Mean Corpuscular Volume 86.8 fL (80.0-98.0); NRBC Abs Auto 0.000 X10*3/uL (0.0-0.012); NRBC Pct Auto 0.0 /100WBC (0.0-0.2); Platelet Count 304 X10*3/uL (160-400); Red Blood Count 4.56 X10*6/uL (4.20-5.50); White Blood Count 10.0 X10*3/uL (4.8-10.8)
[2025-01-16 16:18] LABS: Alanine Aminotransferase 27 U/L (0-31); Albumin Level 3.9 g/dL (3.5-5.0); Alkaline Phosphatase 71 U/L (39-117); Anion Gap 8 (12-20); Aspartate Amino Transferase 28 U/L (5-31); Blood Urea Nitrogen 10 mg/dL (9-16); Calcium 8.8 mg/dL (8.4-10.2); Carbon Dioxide 29 mmol/L (22-29); Chloride 108 mmol/L (96-108); Creatinine Clr Calc Pharmacy 162.9; Estimated Glomerular Filt Rate > 60; Lipase 25 U/L (8-78); Potassium 4.0 mmol/L (3.3-5.1); Sodium 141 mmol/L (135-145); Total Protein 7.2 g/dL (6.5-8.0)
--- OUTSIDE RECORDS SUMMARY | 2025-01-16 19:56 | XMS_ITS | Encounter Summary ---
Author Organization [employer] Address [address] [place] [address] Care Team Providers Care Car Inspector Name Role Phone Jesica Burroughs MD Primary Care Provide r Encounter Details Date Type Department Care Team (Latest Contact Info) Description 01/16/2025 Travel Social History Tobacco Use Types Packs/Day Years [...] AM EDT documented as of this encounter Plan of Treatment Upcoming Encounters Date Type Department Care Team (Late st Contact Info) Description 02/12/2025 10:45 AM EST Procedure Visit [facility] [address] [place] [address] Cece Macias CNM [address] [place] [address] documented as of this encounter Visit Diagnoses Not on filedocumented in this encounter Additional Health Concerns Assessment Noted Time PHQ-9 Depression Total Score: 9 09/04/19 25 12:45 PM EDT documented as of this encounter Care Teams Car Inspector Relationship Specialty Start Date End Date Jesica Burroughs MD [address] [place] [address] PCP - General Family Medicine 01/31/19 documented as of this encounter
--- OUTSIDE RECORDS SUMMARY | 2025-01-16 19:56 | XMS_ITS | Encounter Summary ---
Author Organization [employer] Address [address] [facility] [address] [place] [address] Care Team Providers Care Marketing Research Intern Name Role Phone Jesica Burroughs MD Primary Care Provide r Encounter Details Date Type Department Care Team (Late st Contact Info) Description 01/16/2025 Orders Only GENERIC EXTERNAL DATA DEPARTMENT Provider, Generic External Data Social History Tobacco Use Types Packs/Day Years [...] Description 02/12/2025 10:45 AM EST Procedure Visit [facility] [address], [place] [phone] Cece Macias, ADINA [address], [place] [phone] documented as of this encounter Procedures Procedure Name Priority Date/Time Associated Diagnosis Comments CT ABDOMEN PELVIS WO CONTRAST Routine 01/16/2025 7:15 PM EDT CBC WITH AUTO DIFFERENTIAL Routine 01/16/2025 3:48 PM EDT HCG, TOTAL, QN Routine 01/16/2025 3:48 PM EDT LIPASE Routine 01/16/2025 3:48 PM EDT COMPREHENSIVE METABOLIC PANEL Routine 01/16/2025 3:48 PM EDT documented in this encounter Results * CT Abdomen Pelvis w/o Contrast (01/16/2025 7:15 PM EDT) Anatomical Region Laterality Modality Body, Pelvis, Abdomen Computed T omography 01/16/2025 7:15 PM EDT Narrative 01/16/2025 7:17 PM EDT [address] [address] [address] Scan Report Signed Patient: Jenna Griffin MR#: [id number] 51 : 1995 Acct:[id number] Age/Sex: 29 / F ADM Date: 01/16/25 Loc: HO.ED Attending Dr: Ordering Physician: Guillermo House Date of Service: 01/16/25 Procedure(s): CT abdomen pelvis wo IV con Accession Number(s): [id number] cc: Guillermo House; Jesica Burroughs MD Report Number: [id number]: Total DLP = 615.00 mGy-cm Reason for Exam: LLQ pain CLINICAL HISTORY: LLQ pain CT abdomen and pelvis without contrast Comparison: None provided Findings: Lung bases clear. No acute bony abnormality. Periumbilical ventral hernia contains fat. No associated acute finding noted. Liver and spleen within normal limits. Pancreas and adrenal glands unremarkable. Gallbladder not identified, Correlate with surgical history. No bilateral renal stone or hydronephrosis. No focal renal abnormality or ureteral dilation. No evidence for aortic aneurysm. No free fluid or adenopathy in the pelvis. No diverticulitis. Appendix not identified. Uterus normal size. No adnexal abnormality. Impression: No acute processes This document has been electronically signed by: Jesus Flores MD on 01/16/2025 19:15:41 Dictated By: Jesus Flores MD Signed By: <Electronically signed by Jesus Flores MD in OV> 01/16/251915 DD/ 14 TD/TT: 01/16/251914 Rn Ante Partum: Procedure Note Donotuseinterpreter, Image - 01/16/[address] [address] [address] Scan Report Signed Patient: Ne Griffin#: [id number] : 1995Acct:[id number] Age/Sex: 29 / FADM Date: 01/16/25 Loc: HO.ED Attending Dr: Ordering Physician: Guillermo House Date of Service: 01/16/25 Procedure(s): CT abdomen pelvis wo IV con Accession Number(s): [id number] cc: Guillermo House; Jesica Burroughs MD Report Number: [id number]: Total DLP = 615.00 mGy-cm Reason for Exam: LLQ pain CLINICAL HISTORY: LLQ pain CT abdomen and pelvis without contrast Comparison: None provided Findings: Lung bases clear. No acute bony abnormality. Periumbilical ventral hernia contains fat. No associated acute finding noted. Liver and spleen within normal limits. Pancreas and adrenal glands unremarkable. Gallbladder not identified, Correlate with surgical history. No bilateral renal stone or hydronephrosis. No focal renal abnormality or ureteral dilation. No evidence for aortic aneurysm. No free fluid or adenopathy in the pelvis. No diverticulitis. Appendix not identified. Uterus normal size. No adnexal abnormality. Impression: No acute processes This document has been electronically signed by: Jesus Flores MD on 01/16/2025 19:15:41 Dictated By: Jesus Flores MD Signed By: <Electronically signed by Jesus Flores MD in OV> 01/16/251915 DD/ 14 TD/TT: 01/16/251914 Rn Ante Partum: [facility] External Provider IMG CT PROCEDURES Final Result * hCG, Total, Quantitative (01/16/2025 3:48 PM EDT) HCG Quantitative <2 mIU/mL [facility] Comment:Weeks post LMP Appro ximate hCG(Last Menstrual Period) Range (mIU/ml)3 - 4 weeks 9 - 1304 - 5 weeks 75 - 2,6005 - 6 weeks 850 - 20,8006 - 7 weeks 4000 - 100,2007 - 12 weeks 11,500 - 289,26781 - 16 weeks 18,300 - 137,01493 - 29 weeks (2nd trimester) 1,400 - 53,46443 - 41 weeks (3rd trimester) 940 - 60,000The Levine B- hCG assay is used for the early detection ofpregnancy; it cannot be used to diagnose any conditionunrelated to . If a B-hCG level is not supportedby the clinical evidence, results should be confirmed by analternative method (qualitative urine hCG, for example). 01/16/2025 3:48 PM EDT 01/16/2025 3:51 PM EDT Generic External Data Provider LAB BLOOD ORDERAB LES Final Result Performing Organization Address [facility]/ZIP Co de Phone Number [facility] [address] [place] [phone] * Lipase (01/16/2025 3:48 PM EDT) Lipase 25 8 - 78 U/L [facility] 01/16/2025 3:48 PM EDT 01/16/2025 3:51 PM EDT Generic External Data Provider LAB BLOOD ORDERAB LES Final Result Performing Organization Address [facility] de Phone Number [facility] [address] [place] [phone] * (ABNORMAL) Comprehensive Metabolic Panel (01/16/2025 3:48 PM EDT) Sodium 141 135 - 145 mmol/L [facility] Potassium 4.0 3.3 - 5.1 mmol/L [facility] Chloride 108 96 - 108 mmol/L [facility] Carbon Dioxide 29 22 - 29 mmol/L [facility] Anion Gap 8(L) 12 - 20 [facility] Urea Nitrogen (BUN) 10 9 - 16 mg/dL [facility] Creatinine, Serum 0.53 0.5 - 1.4 mg/dL [facility] Creatinine Clr Calc Pharmacy 162.9 [facility] Comment:Provided height and weight: 165.1 cm,76.3 kg.eGFR (calculated from the MDRD study equation) and eCrCl(calculated from the Cockcroft-Gault equation) are based ondifferent parameters and may not yield comparable results.If eCrCl result is absurd, please check patient'sheight/weight. Estimated Glomerular Filt Rate >60 [facility] Comment:Chronic Kidney Disea se: Estimated GFR < 60 mL/min/1.48w4Wedyto Kidney Disease: Estimated GFR < 15 mL/min/1.73m2 Glucose 76 60 - 115 mg/dL [facility] Calcium 8.8 8.4 - 10.2 mg/dL [facility] Bilirubin, Total 0.6 0.0 - 1.0 mg/dL [facility] Aspartate Amino Transferase 28 5 - 31 U/L [facility] Alanine Aminotransferase 27 0 - 31 U/L [facility] Total Protein 7.2 6.5 - 8.0 g/dL [facility] Albumin Level 3.9 3.5 - 5.0 g/dL [facility] Alkaline Phosphatase 71 39 - 117 U/L [facility] 01/16/2025 3:48 PM EDT 01/16/2025 3:51 PM EDT us Generic External Data Provider LAB BLOOD ORDERAB LES Final Result [facility] [address] [place] [phone] [phone] * CBC auto differential (01/16/2025 3:48 PM EDT) White Blood Count 10.0 4.8 - 10.8 X10*3/uL [facility] Red Blood Count 4.56 4.20 - 5.50 X10*6/uL [facility] Hemoglobin 12.5 12.0 - 16.0 g/dl [facility] Hematocrit 39.6 37.0 - 47.0 % [facility] Mean Corpuscular Volume 86.8 80.0 - 98.0 fL [facility] Mean Corpuscular Hemoglobin 27.4 27.0 - 33.0 pg [facility] Mean Corpuscular HGB Conc 31.6 31.0 - 35.0 g/dl [facility] Red Cell Distribution Width 13.0 11.0 - 16.0 % [facility] Platelet Count 304 160 - 400 X10*3/uL [facility] Mean Platelet Volume 10.0 9.4 - 12.3 fL [facility] Neutrophils Percent Auto 58.3 45 - 73 % [facility] Imm Gran Pct Auto 0.2 0.0 - 0.4 % [facility] Lymphocytes Percent Auto 32.7 20 - 40 % [facility] Monocytes Percent Auto 5.3 2 - 11 % [facility] Eosinophils Percent Auto 2.8 0 - 4 % [facility] Basophils Percent Auto 0.7 0 - 2 % [facility] NRBC Pct Auto 0.0 0.0 - 0.2 /100WBC [facility] Neutrophils Absolute Auto 5.9 2.0 - 8.3 x10*3/uL [facility] Imm Gran Abs Auto 0.02 0.00 - 0.03 X10*3/uL [facility] Lymphocytes Absolute Auto 3.3 1.2 - 4.9 X10*3/uL [facility] Monocytes Absolute Auto 0.5 0.1 - 1.2 X10*3/uL [facility] Eosinophils Absolute Auto 0.3 0.0 - 0.4 X10*3/uL [facility] Basophils Absolute Auto 0.1 0.0 - 0.2 X10*3/uL [facility] NRBC Abs Auto 0.000 0.0 - 0.012 X10*3/uL [facility] 01/16/2025 3:48 PM EDT 01/16/2025 3:51 PM EDT us Generic External Data Provider LAB BLOOD ORDERAB LES Final Result [facility] [address] [place] [phone] documented in this encounter Visit Diagnoses Not on filedocumented in this encounter Additional Health Concerns Assessment Noted Time PHQ-9 Depression Total Score: 9 09/04/19 25 12:45 PM EDT documented as of this encounter Care Teams Marketing Research Intern Relationship Specialty Start Date End Date Jesica Burroughs MD [address] [place] [phone] PCP - General Family Medicine 01/31/19 documented as of this encounter
--- OUTSIDE RECORDS SUMMARY | 2025-01-16 19:56 | XMS_ITS | Encounter Summary ---
Author Organization [employer] Address [address] [place] [address] Care Team Providers Care Market Research Consultant Name Role Phone Jesica Burroughs MD Primary Care Provide r Encounter Details Date Type Department Care Team ([facility] st Contact Info) Description 05/13/2022 Abstract [facility] [address] [place], [place] [phone] Jesica Burroughs MD [address] [place], [place] [phone] Social History Tobacco Use Types Packs/Day Years [...] AM EST documented as of this encounter Functional Status * Over the past 2 weeks, how often have you been bothered by any of the following problems? Question Answer Date of Assessment Author Little interest or pleasure in doing things Not at all 05/16/2022 10:55 AM EST Jaky Sweeney MA Feeling down, depressed, or hopeless Not at all 05/16/2022 10:55 AM EST Jaky Sweeney MA Patient Health Questionnaire-2 Score 0 05/16/2022 10:55 AM EST Leila Sweeney MA documented as of this encounter Plan of Treatment Upcoming Encounters Date Type Department Care Team (Late st Contact Info) Description 02/12/2025 10:45 AM EST Procedure Visit [facility] [address] [place] [address] Cece Macias CNM [address] [place], [place] [phone] documented as of this encounter Procedures Procedure Name Priority Date/Time Associated Diagnosis Comments PAP SMEAR Routine 08/26/2018 12:00 AM EDT documented in this encounter Results * Pap Smear (08/26/2018 12:00 AM EDT) Swab us Cece Macias CNM LAB CYTOLOGY ORDERABLES F inal Result [address], [facility], [place] [phone] documented in this encounter Visit Diagnoses Not on filedocumented in this encounter Care Teams Market Research Consultant Relationship Specialty Start Date End Date Jesica Burroughs MD [address] [place] [phone] PCP - General Family Medicine 01/31/19 documented as of this encounter
--- OUTSIDE RECORDS SUMMARY | 2025-01-16 19:56 | XMS_ITS | Encounter Summary ---
Author Organization [id number] Address [address] [place] [address] Care Team Providers Care Hat Cleaner Name Role Phone Jesica Burroughs MD Primary Care Provide r Encounter Details Date Type Department Care Team ([facility] st Contact Info) Description 01/16/2025 Telephone [facility] [address] [place], [place] [phone] Sienna Luong MD [address] [place], [place] [phone] Social History Tobacco Use Types Packs/Day Years [...] encounter Miscellaneous Notes * Telephone Encounter - Saige Kwong RN - 01/16/2025 2:37 PM EDT TC placed to [facility] ED to call in expect for LLQ pain per . states they want torule out acute abdomen. Advised [facility] ED non urgent and pt will be transporting themselves. [facility] ED staff verbalized understanding and denied further questions. documented in this encounter Plan of Treatment Upcoming Encounters Date Type Department Care Team (Late st Contact Info) Description 02/12/2025 10:45 AM EST Procedure Visit [facility] [address] [place] [address] Cece Macias CNM [address] [place] [phone] documented as of this encounter Visit Diagnoses Not on filedocumented in this encounter Additional Health Concerns Assessment Noted Time PHQ-9 Depression Total Score: 9 09/04/19 25 12:45 PM EDT documented as of this encounter Care Teams Hat Cleaner Relationship Specialty Start Date End Date Jesica Burroughs MD [address] [place] [address] PCP - General Family Medicine 01/31/19 documented as of this encounter
--- OUTSIDE RECORDS SUMMARY | 2025-01-16 19:56 | XMS_ITS | Clinical Summary ---
Author Organization [employer] Address [address] [facility] [place] [address] Care Team Providers Care Graduate Advisor Name Role Phone Jesica Burroughs MD Primary Care Provide r Allergies No known active allergies Medications * This document contains information received from the source organization and may not represent a complete record from that organization. propranolol (Inderal) 20 MG tabletIndicatio ns:Migraine with aura and without status migrainosus, not intractable Take 1 tablet (20 mg) by mouth 2 times daily. 60 tablet 1 04/01/19 25 026 Active Tirzepatide-Sandeep ght Management (Zepbound) 2.5 MG/0.5ML solution auto-injectorIn dications:Class 2 obesity due to excess calories without serious comorbidity with body mass index (BMI) of 35.0 to 35.9 in adult Inject 0.5 mL (2.5 mg) under the skin 1 (one) time per week. 2 mL 04/01/19 25 Active propranolol (Inderal) 40 MG tabletIndicatio ns:Migraine with aura and without status migrainosus, not intractable Take 1 tablet (40 mg) by mouth 2 times daily. 60 tablet 2 05/24/19 25 026 Active Tirzepatide-Sandeep ght Management (Zepbound) 5 MG/0.5ML solution auto-injectorIn dications:Class 2 obesity due to excess calories without serious comorbidity with body mass index (BMI) of 35.0 to 35.9 in adult Inject 0.5 mL (5 mg) under the skin 1 (one) time per week. 2 mL 1 08/08/19 25 Active Tirzepatide-Sandeep ght Management (Zepbound) 7.5 MG/0.5ML solution auto-injectorIn dications:Class 2 obesity due to excess calories without serious comorbidity with body mass index (BMI) of 35.0 to 35.9 in adult Inject 0.5 mL (7.5 mg) under the skin 1 (one) time per week. 2 mL 1 08/31/19 25 Active Tirzepatide-Sandeep ght Management (Zepbound) 10 MG/0.5ML solution auto-injector Inject 0.5 mL (10 mg) under the skin 1 (one) time per week. 2 mL 10/08/19 25 Active Tirzepatide-Sandeep ght Management (Zepbound) 10 MG/0.5ML solutionIndicat ions:Class 2 obesity due to excess calories without serious comorbidity with body mass index (BMI) of 35.0 to 35.9 in adult Inject 10 mg under the skin 1 (one) time per week. 2 mL 10/22/19 25 Active Tirzepatide-Sandeep ght Management (Zepbound) 12.5 MG/0.5ML solution auto-injectorIn dications:Class 2 obesity due to excess calories without serious comorbidity with body mass index (BMI) of 35.0 to 35.9 in adult Inject 0.5 mL (12.5 mg) under the skin 1 (one) time per week. 2 mL 11/16/19 25 Active topiramate (Topamax) 50 MG tabletIndicatio ns:Migraine with aura and without status migrainosus, not intractable Take 1 tablet (50 mg) by mouth Once per day. 60 tablet 1 12/26/19 25 Active cyclobenzaprine (Flexeril) 10 MG tabletIndicatio ns:Muscle spasm One tab po at bedtime prn pain of muscles, do not drive with medicaion 30 tablet 12/26/19 25 Active Tirzepatide-Sandeep ght Management (Zepbound) 15 MG/0.5ML solutionIndicat ions:Overweight (BMI 25.0-29.9) Inject 15 mg under the skin 1 (one) time per week. 2 mL 6 12/26/19 Active cyclobenzaprine (Flexeril) 10 MG tabletIndicatio ns:Arm swelling One tab po at bedtime prn pain of muscles, do not drive with medicaion 30 tablet 07/03/19 025 Discontinued(Re order (will not trigger notification to Pharmacy)) topiramate (Topamax) 50 MG tabletIndicatio ns:Migraine with aura and without status migrainosus, not intractable Take 1 tablet (50 mg) by mouth Once per day. 60 tablet 1 07/10/19 025 Discontinued(Re order (will not trigger notification to Pharmacy)) Active Problems Problem Noted Date Diagnosed Date Scalp cyst 12/25/2024 Muscle spasm 12/25/2024 Assessment & Plan (12/25/2024 3:00 PM EDT): Apply heat on affected area Continue to follow with specialist I will prescribe today Flexeril 10 mg at bedtime she is aware of side effects somnolence and that she cannot drive while taking this medication Overweight (BMI 25.0-29.9) 12/25/2024 Assessment & Plan (12/25/2024 3:00 PM EDT): Extensive counseling done about healthy diet and exercise done today I will go up on her Zepbound to 15 mg weekly and I will continue to monitor Mild depression 09/03/2024 Encounter for Nexplanon removal 07/02/2024 Assessment & Plan (07/02/2024 6:55 PM EDT): Removed without difficulty. No evidence of neurovascular compromise or injury from migration. Given tenderness, can not rule out early cellulitis with implantable device. Treated empirically with cephalexin. Given tightness of trapezius muscles from holding arm, cyclobenzaprine given. Pt reported arm pain resolved with removal of implant but still had muscle strain in next. Class 2 obesity due to exces s calories without serious comorbidity with body mass index (BMI) of 35.0 to 35.9 in adult 04/01/2024 Assessment & Plan (10/21/2024 2:32 PM EDT): Today extensive discussion was done about life style modifications I advise healthy diet (low calorie) and cardiovascular exercise I will go up on zepbound to 10mg weekly RTC 6 weeks in person for weight monitoring Assessment & Plan (08/15/2024 2:49 PM EDT): Extensive counseling about healthy diet and exercise on today Plan is for her to start treatment with milligrams weekly and then I will call her back in 4 weeks to reassess weight and side effects Assessment & Plan (07/09/2024 11:50 AM EDT): Extensive counseling about healthy and exercising today I discontinued her phentermine for several reasons one of them is uncontrolled anxiety also it triggers her palpitations and also because 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 for this reason I will submit a preauthorization for Zepbound 2.5 mg weekly, plan is for her to come back in about 4 to 6 weeks for follow-up her weight Assessment & Plan (05/23/2024 11:39 AM EST): Extensive counseling about healthy diet and exercise done today I will prescribe for patient phentermine 50 mg daily together with Topamax 25 mg daily I will follow-up with her in about 4 to 6 weeks Assessment & Plan (04/01/2024 4:34 PM EST): I will start patient on zepbound 2.5mg weekly Anxiety 04/01/2024 Assessment & Plan (09/03/2024 1:41 PM EDT): During IBH Consult Jenna presenting with change in appetite or weight reduce appetite and verbalized she was coping with eating but currently on medication provided by PCP for weight loss, fatigue/loss of energy, worthlessness, difficulty concentrating and excessive worry/anxiety, difficulty controlling worry, anxiety/worry associated to restlessness and/or feeling keyed-up/On edge , easily fatigued , difficulty concentrating and/or mind going blank , irritability, muscle tension , and sleep disturbance difficulty falling asleep and difficulty staying asleep , and sense of dread ; for a period of 18+ mo, for most or all symptoms in the context of ending relationship, struggle balancing work and personal life, 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 PLAN: (check all that apply) New/Additional Services needed Off-site services for Behavioral Health Integration Plan External OP therapy referral Patient Self Plan Patient to utilize skills provided in intervention , Patient to reach out to [facility] team as needed, and Patient to engage in OP therapy Assessment & Plan (08/15/2024 2:49 PM EDT): Counseling done today I refer her again to behavioral health Assessment & Plan (07/09/2024 11:51 AM EDT): Extensive counseling done today Assessment & Plan (04/01/2024 4:34 PM EST): Counseling done [facility] referral Palpitations 04/01/2024 Assessment & Plan (07/09/2024 11:48 AM EDT): Follow-up with cardiology Maternal varicella, non-immune 08/22/2023 Umbilical hernia 08/22/2023 Migraine with aura 03/31/2023 Assessment & Plan (12/25/2024 3:00 PM EDT): I advise to avoid migraine triggers like red wine, chocolate, cheese, strong perfumes Assessment & Plan (08/15/2024 2:50 PM EDT): Reports migraine headaches are controlled with current medication regimen I advised to avoid triggers like strong perfumes, cheese, chocolate, wine Assessment & Plan (07/09/2024 11:51 AM EDT): I advise to avoid migraine triggers like red wine, chocolate, cheese, strong perfumes I will go up on Topamax to 50 mg daily Assessment & Plan (05/23/2024 11:38 AM EST): I advise to avoid migraine triggers like red wine, chocolate, cheese, strong perfumes I will go up on propranolol to 40 mg twice a day for migraine prevention Continue with Fioricet as needed Assessment & Plan (04/01/2024 4:36 PM EST): I advise to avoid migraine triggers like red wine, chocolate, cheese, strong perfumes I will start patient on propanol for prevention and also on fioricept PRN Assessment & Plan (03/31/2023 4:52 PM EST): I advise to avoid migraine triggers like red wine, chocolate, cheese, strong perfumes RTC 4 weeks televisit Nexplanon removal 03/31/2023 Tubal ligation evaluation 03/31/2023 Vaginal discharge 03/31/2023 Assessment & Plan (03/31/2023 4:52 PM EST): Patient will be contacted with results Encounter for preventive care 03/31/2023 Assessment & Plan (04/01/2024 4:35 PM EST): See HPI Assessment & Plan (03/31/2023 4:52 PM EST): See HPI Bronchitis 03/10/2023 Assessment & Plan (03/10/2023 1:50 PM EST): drink plenty of fluids and rest XRAY ordered patient will be contacted with results If symptoms persistent or worse in spite of treatment I will prescribe I instructed to go to the emergency department Localization-related epilepsy (CMS/HCC) 05/13/19 23 Encounters Date Type Department Care Team Description 01/16/2025 2:20 PM EDT Office Visit [facility] [address] [place] [address] Sienna Luong MD LLQ abdominal pain (Primary Dx) 01/16/2025 Orders Only GENERIC EXTERNAL DATA DEPARTMENT Provider, Generic External Data 01/16/2025 Telephone [facility] MEDICINE [address] [place] [address] Sienna Luong MD 01/16/2025 Travel 01/10/2025 Telephone [facility] MEDIC[facility] [place] [address] Jesica Burroughs MD Prior Authorization ( [place]: Zepbound 15 MG) 12/30/2024 Telephone [facility] [place] [address] Jesica Burroughs MD dec recall 12/25/2024 11:15 AM EDT Office Visit [facility] [place] [address] Jesica Burroughs MD Scalp cyst; Migraine with aura and without status migrainosus, not intractable; Muscle spasm; Overweight (BMI 25.0-29.9); Encounter for immunization 12/25/2024 Travel 12/24/2024 Telephone [facility] [place] [address] Jesica Burroughs MD chart prep 12/17/2024 Patient Outreach [facility] [place] [address] Jescia Burroughs MD Pre-visit Planning (SDOH screening completed on 03/22/2024) 12/06/2024 Telephone [facility] [place] [address] Jesica Burroughs MD Medication Question 11/15/2024 Orders Only [facility] [place] [address] Jesica Burroughs MD Class 2 obesity due to excess calories without serious comorbidity with body mass index (BMI) of 35.0 to 35.9 in adult (Primary Dx) 11/15/2024 Refill [facility] MEDICINE [address] [facility] [place] [phone] Jesica Burroughs MD 11/06/2024 Telephone [facility] OPTOMETRY [address] [place] [phone] Jeane Ramos, OD 10/30/2024 Travel 10/21/2024 1:45 PM EDT Telemedicine [facility] [place] [address] Jesica Burroughs MD Class 2 obesity due to excess calories without serious comorbidity with body mass index (BMI) of 35.0 to 35.9 in adult (Primary Dx); Dietary counseling; Exercise counseling 10/21/2024 Travel 10/18/2024 Telephone [facility] MEDICINE [address] [place] [phone] Jesica Burroughs MD CHART PREP from Last 3 Months Immunizations Immunization Administration Dates Next Due DTaP 11/01/2001, 9,1997,10/15,1997 HPV, Quadrivalent 02/04/2011,09/15/2009,07/10/19 10 Hep A, ped/adol, 2 dose 06/02/2014 Hep B, Adolescent or Pediatric 1997,1997,1997 Hib (HbO) 06/27/1998, 8,1997,07/18 IPV 10/18/2001, 8,1997,07/18 Influenza injectable quadriv alent preservative free 03/31/2023,12/07/2018,06/02/2014 Influenza, IIV3, injectable 12/23/2019, 6,02/04/2011 Influenza, Split (incl. domo fied surface antigen) 02/04/2013,03/08/2012 Influenza, seasonal, injecta ble, preservative free 12/25/2024,12/23/2019 MMR 02/29/2020, 7,10/18/2001,05/18 Meningococcal MCV4P ACYW-135 06/02/2014,07/10/19 10 Tdap 12/23/2019, 8,04/14/2016,07/09 Social History Tobacco Use Types Packs/Day Years Used Date Smoking Tobacco: Never Passive Smoke Exposure: Never Smokeless Tobacco: Never Tobacco Cessation:Counseling Given: Not Answered Alcohol Use Standard Drinks/Week Comments Never 0 [...] Orientation Straight 01/17/2022 10 :18 AM EDT Last Filed Vital Signs Vital Sign Reading [...] Mass Index 31.6 01/16/2025 2:04 PM EDT Plan of Treatment Upcoming Encounters Date Type Department Care Team (Late st Contact Info) Description 02/12/2025 10:45 AM EST Procedure Visit [facility] MEDICINE [address] [place] [address] Gilberto Cece, CNM [address] [place] [address] Health Maintenance Due Date Last Done Comments HIV Screening 1997 Lipid Panel 1997 Family Planning (PISQ) 2012 Hepatitis A Vaccines (2 of 2 - 2-dose series) 12/03/2014 06/02/2014 Hepatitis C Screening 06/12/2015 Pap Smear 08/27/2023 08/26/2018 COVID-19 Vaccine ( season) 2024 09/04/2020, 08/03/2020 Depression Monitoring 03/05/2025 09/03/2024, 025 SDOH Screening 03/22/2025 03/22/2024 Disability Screening 05/22/2025 05/22/2024 Alcohol/Substance Use Screening 12/25/2025 12/25/2024 Tobacco Screening 01/16/2026 01/16/2025 DTaP/Tdap/Td Vaccines (10 - Td or Tdap) 12/22/2029 12/23/2019, 10/09/2017, 04/14/2016, Additional history exists Zoster Vaccines (1 of 2) 06/12/2047 RSV Patients and Patients Aged 60 years or older (1 - 1-dose 75+ series) 2072 Hepatitis B Vaccines Completed 1997, 1997, 1997 HIB Vaccines Completed 06/27/1998, 01/19, 1997, Additional history exists IPV Vaccines Completed 10/18/2001, 03/1997, 1997, Additional history exists HPV Vaccines Completed 02/04/2011, 08/19, 07/09/2009 Meningococcal Vaccine Completed 06/02/2014, 010 Influenza Vaccine Completed 12/25/2024, , 12/23/2019, Additional history exists Meningococcal B Vaccine Aged Out No l onger eligible based on patient's age to complete this topic Pneumococcal Vaccine: Pediatrics (0 to 5 Years) and At-Risk Patients (6 to 49) Years Aged Out No longer eligible based on patient's age to complete this topic RSV under 20 months Aged Out No longe r eligible based on patient's age to complete this topic Rotavirus Vaccines Aged Out No longer eligible based on patient's age to complete this topic Procedures Procedure Name Priority Date/Time Associated Diagnosis Comments CT ABDOMEN PELVIS WO CONTRAST Routine 01/16/2025 7:15 PM EDT HCG, TOTAL, QN Routine 01/16/2025 3:48 PM EDT LIPASE Routine 01/16/2025 3:48 PM EDT COMPREHENSIVE METABOLIC PANEL Routine 01/16/2025 3:48 PM EDT CBC WITH AUTO DIFFERENTIAL Routine 01/16/2025 3:48 PM EDT POCT , URINE Routine 01/16/2025 2:13 PM EDT LLQ abdominal pain PAP SMEAR Routine 08/26/2018 12:00 AM EDT from Last 3 Months or Most Recently Relevant to Health Maintenance Results * CT Abdomen Pelvis w/o Contrast (01/16/2025 7:15 PM EDT) Anatomical Region Laterality Modality Body, Pelvis, Abdomen Computed T omography 01/16/2025 7:15 PM EDT Narrative 01/16/2025 7:17 PM EDT [place] [address] CT Scan Report Signed Patient: Jenna Griffin MR#: [id number] 49 : 1995 Acct:[id number] Age/Sex: 29 / F ADM Date: 01/16/25 Loc: HO.ED Attending Dr: Ordering Physician: Guillermo House Date of Service: 01/16/25 Procedure(s): CT abdomen pelvis wo IV con Accession Number(s): [id number] cc: Guillermo House; Jesica Burroughs MD Report Number: [id number]: Total DLP = 615.00 mGy-cm Reason for [...] in OV> 01/16/251915 DD/ 14 TD/TT: 01/16/251914 Slot Operations Director: Procedure Note Donotuseinterpreter, Image - 01/16/[address] [place] [address] [address] Scan Report Signed Patient: Ne Griffin#: [id number] 49 : 1995Acct:[id number] Age/Sex: 29 / FADM Date: 01/16/25 Loc: HO.ED Attending Dr: Ordering Physician: Guillermo House Date of Service: 01/16/25 Procedure(s): CT abdomen pelvis wo IV con Accession Number(s): [id number] cc: Guillermo House; Jesica Burroughs MD Report Number: [id number]: Total DLP = 615.00 mGy-cm Reason for [...] in OV> 01/16/251915 DD/ 14 TD/TT: 01/16/251914 Slot Operations Director: [facility] External Provider IMG CT PROCEDURES Final Result * CBC auto differential (01/16/2025 3:48 PM EDT) White Blood Count 10.0 4.8 - 10.8 X10*3/uL [facility] Red Blood Count 4.56 4.20 - 5.50 X10*6/uL [facility] Hemoglobin 12.5 12.0 - 16.0 g/dl [facility] Hematocrit 39.6 37.0 - 47.0 % [facility] Mean Corpuscular Volume 86.8 80.0 - 98.0 fL [facility] Mean Corpuscular Hemoglobin 27.4 27.0 - 33.0 pg [facility] Mean Corpuscular HGB Conc 31.6 31.0 - 35.0 g/dl [facility] Red Cell Distribution Width 13.0 11.0 - 16.0 % [facility] Platelet Count 304 160 - 400 X10*3/uL [facility] Mean Platelet Volume 10.0 9.4 - 12.3 fL [facility] Neutrophils Percent Auto 58.3 45 - 73 % [facility] Imm Gran Pct Auto 0.2 0.0 - 0.4 % [facility] Lymphocytes Percent Auto 32.7 20 - 40 % [facility] Monocytes Percent Auto 5.3 2 - 11 % [facility] Eosinophils Percent Auto 2.8 0 - 4 % [facility] Basophils Percent Auto 0.7 0 - 2 % [facility] NRBC Pct Auto 0.0 0.0 - 0.2 /100WBC [facility] Neutrophils Absolute Auto 5.9 2.0 - 8.3 x10*3/uL [facility] Imm Gran Abs Auto 0.02 0.00 - 0.03 X10*3/uL [facility] Lymphocytes Absolute Auto 3.3 1.2 - 4.9 X10*3/uL [facility] Monocytes Absolute Auto 0.5 0.1 - 1.2 X10*3/uL [facility] Eosinophils Absolute Auto 0.3 0.0 - 0.4 X10*3/uL [facility] Basophils Absolute Auto 0.1 0.0 - 0.2 X10*3/uL [facility] NRBC Abs Auto 0.000 0.0 - 0.012 X10*3/uL [facility] 01/16/2025 3:48 PM EDT 01/16/2025 3:51 PM EDT us Generic External Data Provider LAB BLOOD ORDERAB LES Final Result Performing Organization Address City/State/[facility] Co de Phone Number [facility] [address] [place] [phone] * hCG, Total, Quantitative (01/16/2025 3:48 PM EDT) HCG Quantitative <2 mIU/mL [facility] Comment:Weeks post LMP Appro ximate hCG(Last Menstrual Period) Range (mIU/ml)3 - 4 weeks 9 - 1304 - 5 weeks 75 - 2,6005 - 6 weeks 850 - 20,8006 - 7 weeks 4000 - 100,2007 - 12 weeks 11,500 - 289,33025 - 16 weeks 18,300 - 137,95934 - 29 weeks (2nd trimester) 1,400 - 53,13223 - 41 weeks (3rd trimester) 940 - [...] ORDERAB LES Final Result Performing Organization Address City/[facility]/ZIP Co de Phone Number [facility] [address] [place] [phone] * Lipase (01/16/2025 3:48 PM EDT) Pathologist [facility] Lipase 25 8 - 78 U/L [facility] 01/16/2025 3:48 PM EDT 01/16/2025 3:51 PM EDT Generic External Data Provider LAB BLOOD ORDERAB LES Final Result Performing Organization Address [facility] Co de Phone Number [facility] [address] [place] [phone] * (ABNORMAL) Comprehensive Metabolic Panel (01/16/2025 3:48 PM EDT) Sodium 141 135 - 145 mmol/L [facility] Potassium 4.0 3.3 - 5.1 mmol/L [facility] Chloride 108 96 - 108 mmol/L [facility] Carbon Dioxide 29 22 - 29 mmol/L [facility] Anion Gap 8(L) 12 - 20 [facility] Urea Nitrogen (BUN) 10 9 - 16 mg/dL [facility] Creatinine, Serum 0.53 0.5 - 1.4 mg/dL [facility] Creatinine Clr Calc Pharmacy 162.9 [facility] Comment:Provided height and weight: 165.1 cm,76.3 kg.eGFR (calculated from the MDRD study equation) and eCrCl(calculated from the Cockcroft-Gault equation) are based ondifferent parameters and may not yield comparable results.If eCrCl result is absurd, please check patient'sheight/weight. Estimated Glomerular Filt Rate >60 [facility] Comment:Chronic Kidney Disea se: Estimated GFR < 60 mL/min/1.76v3Tizehy Kidney Disease: Estimated GFR < 15 mL/min/1.73m2 Glucose 76 60 - 115 mg/dL [facility] Calcium 8.8 8.4 - 10.2 mg/dL [facility] Bilirubin, Total 0.6 0.0 - 1.0 mg/dL [facility] Aspartate Amino Transferase 28 5 - 31 U/L [facility] Alanine Aminotransferase 27 0 - 31 U/L [facility] Total Protein 7.2 6.5 - 8.0 g/dL [facility] Albumin Level 3.9 3.5 - 5.0 g/dL [facility] Alkaline Phosphatase 71 39 - 117 U/L [facility] 01/16/2025 3:48 PM EDT 01/16/2025 3:51 PM EDT us Generic External Data Provider LAB BLOOD ORDERAB LES Final Result [facility] [address] [place] [phone] * POCT Urine (01/16/2025 2:13 PM EDT) Preg Test, Ur Negative Negative, Indeterminate, None Detected, Invalid, Specimen unsatisfactory for evaluation, Weakly Positive, 2+ QC Media Lot # [id number] Lot# Expiration Date [id number] Urine 01/16/2025 2:13 PM EDT us Sienna Luong MD POINT OF CARE TEST ENTER/E DIT ORDERABLES Final Result * Pap Smear (08/26/2018 12:00 AM EDT) Swab us Cece Gilberto CN LAB CYTOLOGY ORDERABLES F inal Result [facility] [address], [place] [phone] from Last 3 Months or Most Recently Relevant to Health Maintenance Insurance [facility] C3 Care Teams Graduate Advisor Relationship Specialty Start Date End Date Jesica Burroughs MD [address] [place] [address] PCP - General Family Medicine 01/31/19
--- OUTSIDE RECORDS SUMMARY | 2025-01-16 19:56 | XMS_ITS | Encounter Summary ---
Author Organization [employer] Address [address] [place] [address] Care Team Providers Care Grooving Lathe Tender Name Role Phone Jesica Burroughs MD Primary Care Provide r Reason for Visit * Reason Onset Date Comments Prior Authorization 04/25/2024 Medication Question 04/25/2024 Encounter Details Date Type Department Care Team (Late st Contact Info) Description 04/25/2024 Telephone [facility] MED[facility] [address] [place], [place] [phone] Jesica Burroughs MD [address] [place], [place] [phone] Prior Authorization; Medication Question Social History Tobacco [...] like to discuss next steps. Pt Contact: [phone] documented in this encounter Plan of Treatment Upcoming Encounters Date Type Department Care Team (Late st Contact Info) Description 02/12/2025 10:45 AM EST Procedure Visit [facility] [address] [place] [address] Cece Macias CNM [address] [place] [address] documented as of this encounter Visit Diagnoses Not on filedocumented in this encounter Additional Health Concerns Assessment Noted Time PHQ-9 Depression Total Score: 0 04/01/19 25 3:06 PM EST documented as of this encounter Care Teams Grooving Lathe Tender Relationship Specialty Start Date End Date Jesica Burroughs MD [address] [place] [address] PCP - General Family Medicine 01/31/19 documented as of this encounter
[2025-01-16 20:42] LABS: Appearance Urine Clear; Glucose Urine UA Negative (Negative); PH 6.5 (5.0-9.0); Specific Gravity - Urine 1.025 (1.005-1.025)
[2025-01-16 21:24] VITALS: BP 98/50; PULSE 60; RESP 16; TEMP 36.6; O2SAT 98
[2025-01-16 21:52] VITALS: BP 105/55; PULSE 60; RESP 16; TEMP 36.6; O2SAT 98
== END 2025-01-16 21:54 | disposition home or self-care (01) ==
PROVIDERS: Physician Assistant; Emergency Provider Emergency Medicine; PCP Internal Medicine
DX: K59.00 Constipation, unspecified (principal); R10.32 Left lower quadrant pain; G43.909 Migraine, unspecified, not intractable, without status migrainosus; Z79.899 Other long term (current) drug therapy
CPT/HCPCS: 36415; 74176; 76830; 76856; 80053; 81003; 83690; 84702; 85025; 93975; 96372; 99284; J1885

== ENCOUNTER → 2025-01-16 18:11 | Outpatient (BNV) | payer MEDICAID, SELFPAY | PROVIDERS: PCP Internal Medicine; Visit Provider Radiology Diagnostic Radiology | DX: R10.20 Pelvic and perineal pain unspecified side (principal); Z87.42 Personal history of other diseases of the female genital tract | CPT/HCPCS: 76830; 76856 ==

== ENCOUNTER 2025-02-17 07:07 | Outpatient (REF) | payer MEDICAID, SELFPAY ==
[2025-02-18 15:53] LABS: C. trachomatis RNA TMA NOT DETECTED (NOT DETECTED); N. gonorrhoeae RNA TMA NOT DETECTED (NOT DETECTED); Trichomonas (NAAT) NOT DETECTED (NOT DETECTED)
--- OUTSIDE RECORDS SUMMARY | 2025-02-19 23:59 | XMS_ITS | Continuity of Care Document ---
Author Organization [facility] Address [address] [place] [address] [address] [place] [address]- Care Team Providers Care Options Trader Name Role Phone Jo Larios MD, Jesica Rausch Primary Care [id number] Date(s): 02/12/25 - 02/19/[address] [place] [address]- Attending Physician: Milena Bo MD Referring Physician: Jesica Burroughs MD Encounter Type: Office Visit Allergies, Adverse Reactions, Alerts No Known Allergies Immunizations Given and Recorded Vaccine Date Status Refusal Reason Measles/Mumps/Rubella Virus Vaccine 02/29/20 Given Measles/Mumps/Rubella Virus Vaccine 05/29/16 Given tetanus/diphtheria/pertussis, acel(Tdap) 12/23/19 Given tetanus/diphtheria/pertussis, acel(Tdap) 10/09/17 Given tetanus/diphtheria/pertussis, acel(Tdap) 04/14/16 Given influenza virus vaccine, inactivated 12/23/19 Give n influenza virus vaccine, inactivated 02/02/16 Give n Medications etonogestrel 68 mg subcutaneous implant 1 each = 68 mg, Intradermal, call or contact centre coach to Procedure, 0 Refills, Maintenance, 03/01/20 10:59:00 AM EST, Implant, Partial fill upon patient request if the prescription is for a schedule II opioid drug. Start Date: 03/01/20 Status: Ordered Medication Dispense Status: Completed Total Allowed Fills: 1 Fills Dispensed: 0 topiramate 25 mg oral tablet 1 tablet = 25 mg, By Mouth, 2 times a day, for 30 days, TAKE 1 TABLET BY MOUTH EVERY DAY FOR MIGRAINE PREVENTION, # 60 tablet, Physician Stop 04/21/22 1:20:00 PM EST Start Date: 03/22/22 Stop Date: 04/21/22 Status: Ordered Medication Dispense Status: Completed Quantity: 60.0 Unit: tablet Total Allowed Fills: 1 Fills Dispensed: 0 Zepbound Pen 12.5 mg/0.5 mL subcutaneous solution = 12.5 mg, Subcutaneous Injection, Every week, rotate injection sites, # 2 mL, 0 Refills, Maintenance, 11/21/24 2:44:00 PM EDT, Solution, Partial fill upon patient request if the prescription is for a schedule II opioid drug. Start Date: 11/21/24 Status: Ordered Medication Dispense Status: Completed Quantity: 2.0 Unit: mL Total Allowed Fills: 1 Fills Dispensed: 0 Problem List Condition Confirmation Course Effective Dates Status Health St atus Informant History of Confirmed Active H/O Migraine Confirmed Active Rubella non-immune Confirmed Active Hernia, umbilical Confirmed Active Maternal varicella, non-immune Confirmed Active Vital Signs Most recent to oldest [Reference Range]: 1 Height 155 cm (02/12/25 12:58 PM) Weight 69.4 kg (02/12/25 12:58 PM) Pulse Rate [55-90 bpm] 98 bpm *H* (02/12/25 12:58 PM) Body Mass Index [18.5-24.99 kg/m2] 28.89 kg/m2 *H* (02/12/25 12:58 PM) Blood Pressure [90-138/55-84 mm Hg] 107/ 76mm Hg (02/12/25 12:58 PM) Temperature [96.8-100.4 DegF] 98.0 DegF (02/12/25 12:58 PM) Blood pressure sites Arm, left (02/12/25 12:58 PM) Temperature Route Temporal (02/12/25 12:58 PM) Weight Obtained Via Standing scale (02/12/25 12:58 PM) Patient Care team information Care Team Personnel Name: Jesica Burroughs MD Position: [facility] Outreach Member Role: PCP Address: [address] [place] [address] [address] [place] [address]- Telecom: Name: Mecca Smith Position: S Outreach Member Role: Lifetime Consulting Physician Care Team Related Persons Name: CARRIZALES JOYCE Name: PURNIMA MCDERMOTT Name: ELSI ALY Insurance Providers Guarantor name: SUPRIYA ZAMORA [facility] Plan Information #: 1 Payer: [employer] Payer Identifier: MARLENY Member Number: [id number] Group Number: MARLENY Subscriber Identifier: [id number] Relationship to Subscriber: self Coverage Type: MEDICAID Coverage Verification Date: NA Telecom: NA Address: NA
--- OUTSIDE RECORDS SUMMARY | 2025-02-24 21:40 | XMS_ITS | Clinical Summary ---
Author Organization [email or web address] Address [address] [place] [address] Care Team Providers Care Escrow Closer Name Role Phone Jesica Burroughs MD Primary Care Provide r Allergies No known active allergies Medications * This document contains information received from the source organization and may not represent a complete record from that organization. propranolol (Inderal) 20 MG tabletIndication s:Migraine with aura and without status migrainosus, not intractable Take 1 tablet (20 mg) by mouth 2 times daily. 60 tablet 1 5 04/01/19 26 Active Tirzepatide-Weig ht Management (Zepbound) 2.5 MG/0.5ML solution auto-injectorInd ications:Class 2 obesity due to excess calories without serious comorbidity with body mass index (BMI) of 35.0 to 35.9 in adult Inject 0.5 mL (2.5 mg) under the skin 1 (one) time per week. 2 mL 5 Active propranolol (Inderal) 40 MG tabletIndication s:Migraine with aura and without status migrainosus, not intractable Take 1 tablet (40 mg) by mouth 2 times daily. 60 tablet 2 5 05/24/19 26 Active Tirzepatide-Weig ht Management (Zepbound) 5 MG/0.5ML solution auto-injectorInd ications:Class 2 obesity due to excess calories without serious comorbidity with body mass index (BMI) of 35.0 to 35.9 in adult Inject 0.5 mL (5 mg) under the skin 1 (one) time per week. 2 mL 1 5 Active Tirzepatide-Weig ht Management (Zepbound) 7.5 MG/0.5ML solution auto-injectorInd ications:Class 2 obesity due to excess calories without serious comorbidity with body mass index (BMI) of 35.0 to 35.9 in adult Inject 0.5 mL (7.5 mg) under the skin 1 (one) time per week. 2 mL 1 5 Active Tirzepatide-Weig ht Management (Zepbound) 10 MG/0.5ML solution auto-injector Inject 0.5 mL (10 mg) under the skin 1 (one) time per week. 2 mL 5 Active Tirzepatide-Weig ht Management (Zepbound) 10 MG/0.5ML solutionIndicati ons:Class 2 obesity due to excess calories without serious comorbidity with body mass index (BMI) of 35.0 to 35.9 in adult Inject 10 mg under the skin 1 (one) time per week. 2 mL 5 Active Tirzepatide-Weig ht Management (Zepbound) 12.5 MG/0.5ML solution auto-injectorInd ications:Class 2 obesity due to excess calories without serious comorbidity with body mass index (BMI) of 35.0 to 35.9 in adult Inject 0.5 mL (12.5 mg) under the skin 1 (one) time per week. 2 mL 5 Active topiramate (Topamax) 50 MG tabletIndication s:Migraine with aura and without status migrainosus, not intractable Take 1 tablet (50 mg) by mouth Once per day. 60 tablet 1 5 Active cyclobenzaprine (Flexeril) 10 MG tabletIndication s:Muscle spasm One tab po at bedtime prn pain of muscles, do not drive with medicaion 30 tablet 5 Active Tirzepatide-Weig ht Management (Zepbound) 15 MG/0.5ML solutionIndicati ons:Overweight (BMI 25.0-29.9) Inject 15 mg under the skin 1 (one) time per week. 2 mL 6 Active Active Problems Problem Noted Date Diagnosed Date [...] intervention , Patient to reach out to [facility] team as needed, and Patient to engage in OP therapy Assessment & Plan (08/15/2024 2:49 PM EDT): Counseling done today I refer her again to behavioral health Assessment & Plan (07/09/2024 11:51 AM EDT): Extensive counseling done today Assessment & Plan (04/01/2024 4:34 PM EST): Counseling done [facility]N referral Palpitations 04/01/2024 Assessment & Plan (07/09/2024 [...] Encounters Date Type Department Care Team Description 02/19/2025 Results Follow-Up [address] [address] Alisha Murphy CNM Pap Smear, STI testing add on (NG, CT, Trich) 02/12/2025 10:45 AM EST Procedure Visit [address] [address] Alisha Murphy CNM Routine cervical smear (Primary Dx); Screening examination for venereal disease 02/12/2025 Travel 02/11/[address] [address] Alisha Murphy CNM Chart Prep 02/05/2025 Travel 01/16/2025 2:20 PM EDT Office Visit [facility] [address] [place] [address] [phone] Sienna Luong MD LLQ abdominal pain (Primary Dx) 01/16/2025 Orders Only GENERIC EXTERNAL DATA DEPARTMENT Provider, Generic External Data 01/16/[address] [address] Sienna Luong MD 01/16/2025 Travel 01/10/[address] [address] Jesica Burroughs MD Prior Authorization ( PA: Zepbound 15 MG) 12/30/[address] [address] Jesica Burroughs MD dec recall 12/25/2024 11:15 AM EDT Office Visit [address] [address] Jesica Burroughs MD Scalp cyst; Migraine with aura and without status migrainosus, not intractable; Muscle spasm; Overweight (BMI 25.0-29.9); Encounter for immunization 12/25/2024 Travel 12/24/[address] [address] Jesica Burroughs MD chart prep 12/17/2024 Patient Outreach [address] [address] Jesica Burroughs MD Pre-visit Planning ([facility] screening completed on 03/22/2024) 12/06/[address] [address] Jesica Burroughs MD Medication Question from Last 3 Months Immunizations Immunization Administration Dates Next Due DTaP 11/01/2001, 9,1997,10/15,1997 HPV, Quadrivalent 02/04/2011,09/15/2009,07/10/19 10 Hep A, ped/adol, 2 dose 06/02/2014 Hep B, Adolescent or Pediatric 1997,1997,1997 Hib ([facility]) 06/27/1998, 8,1997,07/18 IPV 10/18/2001, 8,1997,07/18 Influenza injectable [...] Access Q2 Not on file 03/22/2024 Comments No Sex and Gender Information Value Date Recorded Sex Assigned at Female 01/17/2022 10:18 AM EDT Legal Sex Female 10:18 AM EDT Gender Identity Female 01/17/2022 10:18 AM EDT Sexual Orientation Straight 01/17/2022 10 :18 AM EDT Last Filed Vital Signs Vital Sign Reading Time Taken Comments Blood Pressure 100/70 02/12/2025 10:46 AM EST Pulse 100 02/12/2025 10:46 AM EST Temperature 36.9 C (98.4 F) 02/12/2025 10:46 AM EST Respiratory Rate 14 02/12/2025 10:46 AM EST Oxygen Saturation 98% 02/12/2025 10:46 AM EST Inhaled Oxygen Concentration - - Weight 69 kg (152 lb 3.2 oz) 02/12/2025 10:46 AM EST Height 154.9 cm (5' 1 ) 01/16/2025 2:04 PM EDT Body Mass Index 28.76 01/16/2025 2:04 PM EDT Plan of Treatment Health Maintenance Due Date Last Done Comments HIV Screening 1997 Lipid Panel 1997 Family Planning (PISQ) 2012 Hepatitis A Vaccines (2 of 2 - 2-dose series) 12/03/2014 06/02/2014 Hepatitis C Screening 06/12/2015 COVID-19 Vaccine ( season) 2024 09/04/2020, 08/03/2020 Depression Monitoring 03/05/2025 09/03/2024, 025 SDOH Screening 03/22/2025 03/22/2024 Alcohol/Substance Use Screening 12/25/2025 12/25/2024 Disability Screening 02/12/2026 02/12/2025 Tobacco Screening 02/12/2026 02/12/2025 Pap Smear 02/13/2028 02/12/2025, 08/26/2018 DTaP/Tdap/Td Vaccines (10 - Td or Tdap) [...] Procedure Name Priority Date/Time Associated Diagnosis Comments CHLAMYDIA/N. GONORRHOEAE AND T. VAGINALIS RNA, QUAL,TMA Routine 02/12/2025 12:00 AM EST Screening examination for venereal disease PAP SMEAR Routine 02/12/2025 12:00 AM EST Routine cervical smear URINALYSIS WITH REFLEX MICROSCOPIC Routine 01/16/2025 8:35 PM EDT US PELVIS TRANSVAGINAL Routine 8:03 PM EDT US PELVIC OVARIAN DOPPLER Routine 01/16/2025 8:[address] ABDOMEN PELVIS WO CONTRAST Routine 01/16/2025 7:15 PM EDT HCG, TOTAL, QN Routine 01/16/2025 3:48 PM EDT LIPASE Routine 01/16/2025 3:48 PM EDT COMPREHENSIVE METABOLIC PANEL Routine 01/16/2025 3:48 PM EDT CBC WITH AUTO DIFFERENTIAL Routine 01/16/2025 3:48 PM EDT POCT , URINE Routine 01/16/2025 2:13 PM EDT LLQ abdominal pain from Last 3 Months Results * STI testing add on (NG, CT, Trich) (02/12/2025 12:00 AM EST) Trichomonas (NAAT) NOT DETECTED NOT DETECTED [facility] Comment:The analytical perfo rmance characteristics of thisassay have been determined by [employer]. Themodifications have not been cleared or approved bythe FDA. This assay has been validated pursuant to theCLIA regulations and is used for clinical purposes.For additional information, please refer tohttp://education.[employer]/faq/Trichomonastma(This link is being provided for information/educational purposes only.)THIS TEST WAS PERFORMED AT:[employer] [place] [phone] VILLA MD CTNG Ref Lab NOT DETECTED NOT DETECTED [facility] NG Ref Lab NOT DETECTED NOT DETECTED [facility] ThinPrep vial Cervix uteri structure / Unknown 02/12/2025 02/17/2025 7:41 AM EST Narrative [facility] - 02/18/2025 3:53 PM EST Collection Date: [id number] by: LISA [place]: Cervix us Alisha [facility] CYTOLOGY ORDERABLES F inal Result [facility] [address] [place] [phone] * Pap Smear (02/12/2025 12:00 AM EST) Swab Cervix uteri structure / Unknown 02/12/2025 02/17/2025 7:07 AM EST Narrative [facility] - 02/19/2025 12:04 PM EST ----- ------- Name: Jenna Griffin Age/Sex: 29/F : 1995 Unit#: [id number] Attend Dr: Re02/12/25 Status: PRE REF Location: OliviaLNP Disch: ----- ------- SPEC : [id number] RECD: 02/17/25 STATUS: ARUNA RICHARDSON NUM: [id number] MURALI: 02/12/25-[address]: ALISHA MURPHY [facility] ENTERED: 02/17/25 SP TYPE: Pap Harriet DAMON DR: ORDERED: Pap Smear Interpretation Satisfactory for evaluation. Negative for intraepithelial lesion or malignancy. Clinical Information LMP: Previous PAP test:2019 Other surgery: Other history: Material Received ThinPrep-Cervical ----- ------- Signed (signature on file) Lisa Rene CT (ASCP) 02/19/25 1204 ----- ------- END OF REPORT us Alisha Murphy [facility] CYTOLOGY ORDERABLES F inal Result Performing Organization Address [facility]/ZIP Co de Phone Number [facility] [address] [place] [address] [phone] Urinalysis w/reflex microscopic (01/16/2025 8:35 PM EDT) Color Urine Yellow [facility] Appearance Urine Clear [facility] PH 6.5 5.0 - 9.0 [facility] Glucose Urine UA Negative Negative mg/dL [facility] Urine Blood Negative Negative [facility] Specific [place] - Urine 1.025 1.005 - 1.025 [facility] Urine Protein Negative Neg-Trace mg/dL [facility] Urine Ketones Negative Negative mg/dL [facility] Nitrite Urine Negative Negative [facility] Leukocyte Esterase Urine Negative Negative [facility] 01/16/2025 8:35 PM EDT 01/16/2025 8:38 PM EDT Narrative [facility] - 01/16/2025 8:44 PM EDT Urine, Clean Catch us Generic External Data Provider LAB URINE ORDERAB LES Final Result Performing Organization Address [facility] Co de Phone Number [facility] [address] [place] [address] [phone] * US PELVIC OVARIAN DOPPLER (01/16/2025 8:03 PM EDT) Anatomical Region Laterality Modality Abdomen Ultrasound 01/16/2025 8:03 PM EDT Narrative 01/16/2025 8:05 PM EDT [address] [address] Ultrasound Report Signed Patient: Jenna Griffin MR#: [id number] 49 : 1995 Acct:[id number] Age/Sex: 29 / F ADM Date: 01/16/25 Loc: HO.ED Attending Dr: Ordering Physician: Guillermo House Date of Service: 01/16/25 Procedure(s): US pelvic ovarian doppler Accession Number(s): [id number] cc: Guillermo House; Jesica Burroughs MD Reason for Exam: llQ pelvic pain. torsion? CLINICAL HISTORY: llQ pelvic pain. torsion? Transabdominal and transvaginal pelvic ultrasound Bilateral ovarian Doppler studies Comparison: 01/04/2023 Findings: Uterus 8.8 x 3.1 x 3.9 cm. Endometrium 9 mm. Trace fluid in endometrium. 3 mm endometrial cyst. No significant cul-de-sac fluid. Right ovary 3.1 x 2.2 x 2.5 cm. No significant abnormality. Left ovary 3.5 x 2.7 x 2.6 cm. 9.9 cm dominant follicle. Color and spectral Doppler assessment of both ovaries. Normal flow to both ovaries, no evidence for torsion. Impression: No significant abnormality This document has been electronically signed by: Jesus Flores MD on 01/16/2025 20:03:55 Dictated By: Jesus Flores MD Signed By: <Electronically signed by Jesus Flores MD in OV> 01/16/252003 DD/ 02 TD/TT: 01/16/252002 Systems Accountant: Procedure Note Donotuseinterpreter, Image - 01/16/[address] [address] Ultrasound Report Signed Patient: Jaden GriffinR#: [id number] 49 : 1995Acct:[id number] Age/Sex: 29 / FADM Date: 01/16/25 Loc: HO.ED Attending Dr: Ordering Physician: Guillermo House Date of Service: 01/16/25 Procedure(s): US pelvic ovarian doppler Accession Number(s): [id number] cc: Guillermo House; Jesica Burroughs MD Reason for Exam: llQ pelvic pain. torsion? CLINICAL HISTORY: llQ pelvic pain. torsion? Transabdominal and transvaginal pelvic ultrasound Bilateral ovarian Doppler studies Comparison: 01/04/2023 Findings: Uterus 8.8 x 3.1 x 3.9 cm. Endometrium 9 mm. Trace fluid in endometrium. 3 mm endometrial cyst. No significant cul-de-sac fluid. Right ovary 3.1 x 2.2 x 2.5 cm. No significant abnormality. Left ovary 3.5 x 2.7 x 2.6 cm. 9.9 cm dominant follicle. Color and spectral Doppler assessment of both ovaries. Normal flow to both ovaries, no evidence for torsion. Impression: No significant abnormality This document has been electronically signed by: Jesus Flores MD on 01/16/2025 20:03:55 Dictated By: Jesus Flores MD Signed By: <Electronically signed by Jesus Flores MD in OV> 01/16/252003 DD/ 02 TD/TT: 01/16/252002 Systems Accountant: [facility] External Provider IMG US PROCEDURES Final Result * US Pelvis Transvaginal (01/16/2025 8:03 PM EDT) Anatomical Region Laterality Modality Pelvis Ultrasound 01/16/2025 8:03 PM EDT Narrative 01/27/2025 11:33 AM [place] [address] Ultrasound Report Signed with Juan J Patient: Jenna Griffin MR#: [id number] 49 : 1995 Acct:[id number] Age/Sex: 29 / F ADM Date: 01/16/25 Loc: HO.ED Attending Dr: Ordering Physician: Guillermo House Date of Service: 01/16/25 Procedure(s): US pelvic and transvaginal Accession Number(s): [id number] cc: Guillermo House; Jesica Burroughs MD Reason for Exam: pelvic pain. torsions? pmh of ovarian cysts ADDENDUM This document has been electronically signed by: Jesus Flores MD on 01/16/2025 20:03:55 ADDENDUM: Addendum for voice recognition error correction: Dominant left ovarian follicle measures 1.9 cm. Previous report erroneously interpreted dictation as 9.9 cm. This document has been electronically signed by: eJsus Flores MD on 02/13/2025 21:51:19 Addendum Dictated By: Jesus Flores MD Addendum Signed By: <Electronically signed by Jesus Flores MD in OV> 02/13/252151 Addendum Cosigned By: DD/ TD/TT: 02/13/25 CLINICAL HISTORY: llQ pelvic pain. torsion? Transabdominal and transvaginal pelvic ultrasound Bilateral ovarian Doppler studies Comparison: 01/04/2023 Findings: Uterus 8.8 x 3.1 x 3.9 cm. Endometrium 9 mm. Trace fluid in endometrium. 3 mm endometrial cyst. No significant cul-de-sac fluid. Right ovary 3.1 x 2.2 x 2.5 cm. No significant abnormality. Left ovary 3.5 x 2.7 x 2.6 cm. 9.9 cm dominant follicle. Color and spectral Doppler assessment of both ovaries. Normal flow to both ovaries, no evidence for torsion. Impression: No significant abnormality This document has been electronically signed by: Jesus Flores MD on 01/16/2025 20:03:55 Dictated By: Jesus Flores MD Signed By: <Electronically signed by Jesus Flores MD in OV> 01/27/25 1133 DD/ 02 TD/TT: 01/16/252002 Systems Accountant: Procedure Note Donotuseinterpreter, Image - 02/13/2025 [place] [address] Ultrasound Report Signed with Addenda Patient: Ne Griffin#: [id number] 49 : 1995Acct:[id number] Age/Sex: 29 / FADM Date: 01/16/25 Loc: HO.ED Attending Dr: Ordering Physician: Guillermo House Date of Service: 01/16/25 Procedure(s): US pelvic and transvaginal Accession Number(s): [id number] cc: Guillermo House; Jesica Burroughs MD Reason for Exam: pelvic pain. torsions? pmh of ovarian cysts ADDENDUM This document has been electronically signed by: Jesus Flores MD on 01/16/2025 20:03:55 ADDENDUM: Addendum for voice recognition error correction: Dominant left ovarian follicle measures 1.9 cm. Previous report erroneously interpreted dictation as 9.9 cm. This document has been electronically signed by: Jesus Flores MD on 02/13/2025 21:51:19 Addendum Dictated By: Jesus Flores MD Addendum Signed By: <Electronically signed by MD Radha in OV> 02/13/252151 Addendum Cosigned By: DD/ TD/TT: 02/13/25 CLINICAL HISTORY: llQ pelvic pain. torsion? Transabdominal and transvaginal pelvic ultrasound Bilateral ovarian Doppler studies Comparison: 01/04/2023 Findings: Uterus 8.8 x 3.1 x 3.9 cm. Endometrium 9 mm. Trace fluid in endometrium. 3 mm endometrial cyst. No significant cul-de-sac fluid. Right ovary 3.1 x 2.2 x 2.5 cm. No significant abnormality. Left ovary 3.5 x 2.7 x 2.6 cm. 9.9 cm dominant follicle. Color and spectral Doppler assessment of both ovaries. Normal flow to both ovaries, no evidence for torsion. Impression: No significant abnormality This document has been electronically signed by: Jesus Flores MD on 01/16/2025 20:03:55 Dictated By: Jesus Flores MD Signed By: <Electronically signed by Jesus Flores MD in OV> 01/27/253 DD/ 02 TD/TT: 01/16/252002 Systems Accountant: us [facility] External Provider IMG US PROCEDURES Edited Result - Final * CT Abdomen Pelvis w/o Contrast (01/16/2025 7:15 PM EDT) Anatomical Region Laterality Modality Body, Pelvis, Abdomen Computed T omography 01/16/2025 7:15 PM EDT Narrative 01/16/2025 7:17 PM EDT [place] [address] CT Scan Report Signed Patient: Jenna Griffin MR#: [id number] 49 : 1995 Acct:[id number] Age/Sex: 29 / F ADM Date: 01/16/25 Loc: HO.ED Attending Dr: Ordering Physician: Guillermo House Date of Service: 01/16/25 Procedure(s): CT abdomen pelvis wo IV con Accession Number(s): [id number] cc: Guillermo House; Jesica Burroughs MD Report Number: [id number]: Total DLP = 615.00 mGy-cm Reason for [...] in OV> 01/16/251915 DD/ 14 TD/TT: 01/16/251914 Systems Accountant: Procedure Note Donotuseinterpreter, Image - 01/16/[address] [address] [address] Scan Report Signed Patient: Ne Griffin#: [id number] 49 : 1995Acct:[id number] Age/Sex: 29 / FADM Date: 01/16/25 Loc: HO.ED Attending Dr: Ordering Physician: Guillermo House Date of Service: 01/16/25 Procedure(s): CT abdomen pelvis wo IV con Accession Number(s): [id number] cc: Guillermo House; Jesica Burroughs MD Report Number: [id number]: Total DLP = 615.00 mGy-cm Reason for [...] in OV> 01/16/251915 DD/ 14 TD/TT: 01/16/251914 Systems Accountant: [facility] External Provider IMG CT PROCEDURES Final Result * CBC auto differential (01/16/2025 3:48 PM EDT) White Blood Count 10.0 4.8 - 10.8 X10*3/uL [facility] Red Blood Count 4.56 4.20 - 5.50 X10*6/uL [facility] Hemoglobin 12.5 12.0 - 16.0 g/dl [facility] Hematocrit 39.6 37.0 - 47.0 % [facility] Mean Corpuscular Volume 86.8 80.0 - 98.0 fL [facility] Mean Corpuscular Hemoglobin 27.4 27.0 - 33.0 pg [facility] Mean Corpuscular HGB Conc 31.6 31.0 - 35.0 g/dl [facility] Red Cell Distribution Width 13.0 11.0 - 16.0 % [facility] Platelet Count 304 160 - 400 X10*3/uL [facility] Mean Platelet Volume 10.0 9.4 - 12.3 fL [facility] Neutrophils Percent Auto 58.3 45 - 73 % [facility] Imm Gran Pct Auto 0.2 0.0 - 0.4 % [facility] Lymphocytes Percent Auto 32.7 20 - 40 % [facility] Monocytes Percent Auto 5.3 2 - 11 % [facility] Eosinophils Percent Auto 2.8 0 - 4 % [facility] Basophils Percent Auto 0.7 0 - 2 % [facility] NRBC Pct Auto 0.0 0.0 - 0.2 /100WBC [facility] Neutrophils Absolute Auto 5.9 2.0 - 8.3 x10*3/uL [facility] Imm Gran Abs Auto 0.02 0.00 - 0.03 X10*3/uL [facility] Lymphocytes Absolute Auto 3.3 1.2 - 4.9 X10*3/uL [facility] Monocytes Absolute Auto 0.5 0.1 - 1.2 X10*3/uL [facility] Eosinophils Absolute Auto 0.3 0.0 - 0.4 X10*3/uL [facility] Basophils Absolute Auto 0.1 0.0 - 0.2 X10*3/uL [facility] NRBC Abs Auto 0.000 0.0 - 0.012 X10*3/uL [facility] 01/16/2025 3:48 PM EDT 01/16/2025 3:51 PM EDT us Generic External Data Provider LAB BLOOD ORDERAB LES Final Result Performing Organization Address [facility] Co de Phone Number [facility] [address] [place] [phone] * hCG, Total, Quantitative (01/16/2025 3:48 PM EDT) HCG Quantitative <2 mIU/mL [facility] Comment:Weeks post LMP Appr oximate hCG(Last Menstrual Period) Range (mIU/ml)3 - 4 weeks 9 - 1304 - 5 weeks 75 - 2,6005 - 6 weeks 850 - 20,8006 - 7 weeks 4000 - 100,2007 - 12 weeks 11,500 - 289,94890 - 16 weeks 18,300 - 137,44167 - 29 weeks (2nd trimester) 1,400 - 53,74626 - 41 weeks (3rd trimester) 940 - 60,000The Levine B-hCG assay is used for the early detection ofpregnancy; it cannot be used to diagnose any conditionunrelated to . If a B-hCG level is not supportedby the clinical evidence, results should be confirmed by analternative method (qualitative urine hCG, for example). 01/16/2025 3:48 PM EDT 01/16/2025 3:51 PM EDT Generic External Data Provider LAB BLOOD ORDERAB LES Final Result Performing Organization Address [facility] Co de Phone Number [facility] [address] [place] [phone] * Lipase (01/16/2025 3:48 PM EDT) Lipase 25 8 - 78 U/L [facility] 01/16/2025 3:48 PM EDT 01/16/2025 3:51 PM EDT Generic External Data Provider LAB BLOOD ORDERAB LES Final Result Performing Organization Address [facility] Co de Phone Number [facility] [address] [place] [phone] * (ABNORMAL) Comprehensive Metabolic Panel (01/16/2025 3:48 PM EDT) Sodium 141 135 - 145 mmol/L [facility] Potassium 4.0 3.3 - 5.1 mmol/L [facility] Chloride 108 96 - 108 mmol/L [facility] Carbon Dioxide 29 22 - 29 mmol/L [facility] Anion Gap 8(L) 12 - 20 [facility] Urea Nitrogen (BUN) 10 9 - 16 mg/dL [facility] Creatinine, Serum 0.53 0.5 - 1.4 mg/dL [facility] Creatinine Clr Calc Pharmacy 162.9 [facility] Comment:Provided height and weight: 165.1 cm,76.3 kg.eGFR (calculated from the MDRD study equation) and eCrCl(calculated from the Cockcroft-Gault equation) are based ondifferent parameters and may not yield comparable results.If eCrCl result is absurd, please check patient'sheight/weight. Estimated Glomerular Filt Rate >60 [facility] Comment:Chronic Kidney Disea se: Estimated GFR < 60 mL/min/1.27r3Pwhfva Kidney Disease: Estimated GFR < 15 mL/min/1.73m2 Glucose 76 60 - 115 mg/dL [facility] Calcium 8.8 8.4 - 10.2 mg/dL [facility] Bilirubin, Total 0.6 0.0 - 1.0 mg/dL [facility] Aspartate Amino Transferase 28 5 - 31 U/L [facility] Alanine Aminotransferase 27 0 - 31 U/L [facility] Total Protein 7.2 6.5 - 8.0 g/dL [facility] Albumin Level 3.9 3.5 - 5.0 g/dL [facility] Alkaline Phosphatase 71 39 - 117 U/L [facility] 01/16/2025 3:48 PM EDT 01/16/2025 3:51 PM EDT us Generic External Data Provider LAB BLOOD ORDERAB LES Final Result [facility] [address] [place] [address] [phone] * POCT Urine (01/16/2025 2:13 PM EDT) Preg Test, Ur Negative Negative, Indeterminate, None Detected, Invalid, Specimen unsatisfactory for evaluation, Weakly Positive, 2+ QC Media Lot # [id number] Lot# Expiration Date [id number] Urine 01/16/2025 2:13 PM EDT Sienna Luong MD POINT OF CARE TEST ENTER/E DIT ORDERABLES Final Result from Last 3 Months Insurance [facility] C3 Care Teams Escrow Closer Relationship Specialty Start Date End Date Jesica Burroughs MD [address] [place] [id number] PCP - General Family Medicine 01/31/19
--- OUTSIDE RECORDS SUMMARY | 2025-02-24 21:40 | XMS_ITS | Encounter Summary ---
Author Organization [employer] Address [address] [place] [address] Care Team Providers Care Attendant Lodging Facilities Name Role Phone Jesica Burroughs MD Primary Care Provide r Reason for Visit * Reason Onset Date Comments Results 02/19/2025 Encounter Details Date Type Department Care Team ([facility] st Contact Info) Description 02/19/2025 Results Follow-Up [facility] MEDICINE [address] [place] [address] Cece Macias CN [address] [place] [address] Pap Smear, STI testing add on (NG, CT, Trich) Social History Tobacco Use Types Packs/Day Years [...] encounter Miscellaneous Notes * Telephone Encounter - Dorothy Mullen RN - 02/19/2025 3:49 PM EST Telephone call placed to pt. Informed pap looks good and STI tetsing negative which is good. Waiting to hear back from radiologist regarding US but that we will be in touch. Pt verbalized understanding and denied having any further questions or concerns at this time. Upon chart review. Addendum now added stating: Addendum for voice recognition error correction: Dominant left ovarian follicle measures 1.9 cm. Previous report erroneously interpreted dictation as 9.9 cm. * Telephone Encounter - Dorothy Mullen RN - 02/19/2025 12:50 PM EST ----- Message from Cece Macias sent at 02/19/2025 12:13 PM EST ----- Please let Jenna know her pap was normal, Gonorrhea/Chlamydia/trichomonas negative. This is all good news. We're still waiting to hear back from radiology to clarify unit of measurement for ovarian follicle on pelvic ultrasound. See previous message for this patient. Please let me know when you hear from them. Thanks! ----- Message ----- From: Interface, Lab Results In Sent: 02/18/2025 3:53 PM EST To: Cece Macias CNM * Result Encounter Note - Cece Macias CNM - 02/19/2025 12:13 PM EST Please let Jenna know her pap was normal, Gonorrhea/Chlamydia/trichomonas negative. This is all good news. We're still waiting to hear back from radiology to clarify unit of measurement for ovarian follicle on pelvic ultrasound. See previous message for this patient. Please let me know when you hear from them. Thanks! documented in this encounter Plan of Treatment Not on file documented as of this encounter Visit Diagnoses Not on filedocumented in this encounter Additional Health Concerns Assessment Noted Time PHQ-9 Depression Total Score: 9 09/04/19 25 12:45 PM EDT documented as of this encounter Care Teams Attendant Lodging Facilities Relationship Specialty Start Date End Date Jesica Burroughs MD [address] [place] [address] PCP - General Family Medicine 01/31/19 documented as of this encounter
--- OUTSIDE RECORDS SUMMARY | 2025-02-24 21:40 | XMS_ITS | Encounter Summary ---
Author Organization [employer] Address [address] [place] [address] Care Team Providers Care Sports Trainer Name Role Phone Jesica Burroughs MD Primary Care Provide r Reason for Visit * Reason Onset Date Comments Prior Authorization 04/25/2024 Medication Question 04/25/2024 Encounter Details Date Type Department Care Team (Late st Contact Info) Description 04/25/2024 Telephone [facility] MEDICINE [address] [place], [place] [phone] Jesica Burroughs MD [address] [place], [place] [phone] Prior Authorization; Medication Question Social History Tobacco [...] like to discuss next steps. Pt Contact: [phone] documented in this encounter Plan of Treatment Not on file documented as of this encounter Visit Diagnoses Not on filedocumented in this encounter Additional Health Concerns Assessment Noted Time PHQ-9 Depression Total Score: 0 04/01/19 25 3:06 PM EST documented as of this encounter Care Teams Sports Trainer Relationship Specialty Start Date End Date Jesica Burroughs MD [address] [place] [phone] PCP - General Family Medicine 01/31/19 documented as of this encounter
--- OUTSIDE RECORDS SUMMARY | 2025-02-24 21:41 | XMS_ITS | Encounter Summary ---
Author Organization [employer] Address [address] [place] [address] Care Team Providers Care Used Car Renovator Name Role Phone Jesica Burroughs MD Primary Care Provide r Encounter Details Date Type Department Care Team ([facility] st Contact Info) Description 05/13/2022 Abstract [facility] MEDICINE [address] [place], [place] [phone] Jesica Burroughs MD [address] [place], [place] [phone] Social History Tobacco Use Types Packs/Day Years [...] things Not at all 05/16/2022 10:55 AM Jaky Sullivan [place] Feeling down, depressed, or hopeless Not at all 05/16/2022 10:55 AM Jaky Sullivan MA Patient Health Questionnaire-2 Score 0 05/16/2022 10:55 AM Leila Sullivan MA documented as of this encounter Plan of Treatment Not on file documented as of this encounter Procedures Procedure Name Priority Date/Time Associated Diagnosis Comments PAP SMEAR Routine 08/26/2018 12:00 AM EDT documented in this encounter Results * Pap Smear (08/26/2018 12:00 AM EDT) Swab us [facility] ORDERABLES F inal Result [facility] [address], [place] [address] documented in this encounter Visit Diagnoses Not on filedocumented in this encounter Care Teams Used Car Renovator Relationship Specialty Start Date End Date Jesica Burroughs MD [address] [place] [address] PCP - General Family Medicine 01/31/19 documented as of this encounter
== END 2025-02-17 07:08 | disposition home or self-care (01) ==
LOC: HO.LNP 07:07
PROVIDERS: Visit Provider Advanced Practice Midwife
DX: Z12.4 Encounter for screening for malignant neoplasm of cervix (principal); Z20.2 Contact with and (suspected) exposure to infections with a predominantly sexual mode of transmission
CPT/HCPCS: 87491; 87591; 87661; 88175